=== PATIENT | female | born 1985 | race Caucasian/White ===

== ENCOUNTER → 2019-04-27 | Outpatient (CLI) | payer OTHER, SELFPAY ==
[2019-04-27 16:00] LABS: Internal QC Validated? YES +Cl - CLEAR BKGD
[2019-04-27 16:43] LABS: Pregnancy, Serum, hCG Quali. POSITIVE Negative (0-9 Nonpreg); hCG Titer Quant., Serum 695 mIU/mL (1-3)
== END | disposition home or self-care (01) ==
LOC: WOBLAB 14:31
PROVIDERS: Visit Provider Obstetrics & Gynecology
DX: O20.0 Threatened abortion (principal)
CPT/HCPCS: 36415; 84702; 84703

== ENCOUNTER → 2019-04-29 | Outpatient (CLI) | payer OTHER, SELFPAY ==
[2019-04-29 09:41] LABS: hCG Titer Quant., Serum 208 mIU/mL (1-3)
== END | disposition home or self-care (01) ==
LOC: WOBLAB 08:56
PROVIDERS: Visit Provider Obstetrics & Gynecology
DX: O20.0 Threatened abortion (principal)
CPT/HCPCS: 36415; 84702

== ENCOUNTER → 2020-05-25 | Outpatient (CLI) | payer OTHER, SELFPAY ==
--- NOTE | 2020-05-25 11:30 | MRI_ITS ---
STUDY: MRI BRAIN WITH AND WITHOUT CONTRAST (ATTENTION PITUITARY GLAND) REASON FOR EXAM: Female, 35 years old. hyperprolactemia, abnormal labs, fatigue TECHNIQUE: Standardized multiplanar fat and water weighted pulse sequences were obtained. IV Dotarem 15ml was administered for the contrast portion of the examination. COMPARISON: None. FINDINGS: Normal size of the pituitary gland for the patient?s age and gender. Normal enhancement of the pituitary gland, without a demonstrated intrapituitary lesion. Normal infundibular stalk and suprasellar cistern. Normal optic chiasm and hypothalamus. Normal size of the ventricles and extra-axial spaces for the patient''s age. Normal white matter tracts of the supratentorial brain. There is no evidence for recent intracranial ischemia or other cause of cytotoxic edema on diffusion weighted imaging (DWI). Normal bilateral basal ganglia. Normal thalami. Normal flow voids within the major intracranial circulation suggesting patency by spin echo criteria. There is a 5 mm markedly hypointense area within the left side of the sella turcica felt to represent a flow void from a saccular aneurysm from the medial aspect of the cavernous left internal carotid artery. Correlation with MRA, CTA, and/or conventional angiography is recommended. Normal venous enhancement. There is no enhancing intra-axial or extra-axial abnormality. There is no extra-axial fluid accumulation. Normal tectal plate and pineal gland. Normal midbrain, chiquita and medulla. Normal cerebellum. Normal basal cisterns. Normal bilateral temporal bones. Normal bilateral internal auditory canals. No demonstrated orbital abnormality, within the constraints of a routine brain study. Normal visualized paranasal sinuses. Normal calvarium and skull base. Normal visualized upper cervical spine. Normal visualized soft tissue structures. MRI/Brain W/WO Contrast IMPRESSION: Normal unenhanced and enhanced MRI of the pituitary gland. 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 Correlation with MRA, CTA, and or conventional angiography is recommended. Electronically Signed: Angel Lara MD at 13:02 EDT Tel , Service support ,
== END | disposition home or self-care (01) ==
PROVIDERS: PCP Internal Medicine; Referring Provider Obstetrics & Gynecology; Visit Provider Obstetrics & Gynecology
DX: E22.1 Hyperprolactinemia (principal)
CPT/HCPCS: 70553; A9575

== ENCOUNTER → 2021-02-08 10:39 | Outpatient (CLI) | payer OTHER, SELFPAY ==
[2017-04-16 17:33] VITALS: BMI 35.3
[2021-02-08 13:27] LABS: Absolute Lymphocyte Count 2.58 X10^3/uL (0.83-4.51); Absolute Neutrophil Count 4.8 X10^3/uL (2.0-7.7); Basophil# 0.06 X10^3/uL; Basophil% 0.7 % (0-1); Eosinophil# 0.08 X10^3/uL; Hematocrit 41.2 % (37-47); Hemoglobin 13.1 g/dL (12.0-15.0); Lymphocyte # 2.58 X10^3/ul (4.0); Lymphocyte % 31.9 % (19-41); Mean Corp Hgb Conc 31.8 g/dL (32-36); Mean Corpuscular Hgb 28.6 pg (27.0-32.0); Mean Platelet Vol. 12.4 fl (6.2-12.0); Monocyte# 0.58 X10^3/uL; Monocyte% 7.2 % (0-10); NRBC Flagged by Analyzer 0 % (0-5); Neutrophil # 4.76 X10^3/uL (2.7-7.7); Neutrophil % 58.7 % (47-70); Platelet Count 252 K/mm3 (150-450); RBC Distribution Width CV 13.2 % (11.6-14.6); RBC Distribution Width SD 43.5 fl (35.1-43.9); Red Blood Count 4.58 M/mm3 (4.2-5.4); White Blood Count 8.1 K/mm3 (4.4-11.0)
[2021-02-08 13:48] LABS: ALB/GLOB Ratio 1.1 RATIO (0.9-2.4); AST(SGOT) 25 U/L (15-37); Alanine Aminotransfer ALT/SGPT 51 U/L (13-56); Alkaline Phosphatase 64 U/L (45-117); Anion Gap 5 (5-15); BUN 8 mg/dL (7-18); BUN/Creat Ratio 9.5 RATIO (10-20); Calcium,Total 8.9 mg/dL (8.5-10.1); Chloride 105 mmol/L (98-107); Creatinine, Serum 0.84 mg/dL (0.55-1.02); EST Glomerular Filtration Rate 81 mL/min (>60); Est Glom Filt Rate - Afr Amer 98 mL/min (>60); Globulin 3.5 g/dL (2.2-4.2); Glucose 99 mg/dL (74-106); LDH 172 U/L (84-246); Potassium 3.8 mmol/L (3.5-5.1); Protein, Total 7.5 g/dL (6.4-8.2); Sodium Level 138 mmol/L (136-145); Thyroid Stim Hormone (TSH) 4.36 uIU/mL (0.358-3.74)
[2021-02-08 13:56] LABS: Protein, Urine (Random) < 6.0 mg/dL (<11.9)
[2021-02-09 09:36] LABS: HIV - WCH Non-Reactive (Nonreactive); Hepatitis B Surface Antigen Non-Reactive (Nonreactive); Hepatitis C Antibody Non-Reactive (Nonreactive); Rubella IgG Reactive (Nonreactive); Syphilis Antibodies Non-reactive
[2021-02-09 20:07] LABS: Chlamydia By Nucleic Acid AMP Negative (Negative)
[2021-02-09 20:37] LABS: Gonococcus By Nucleic Acid AMP Negative (Negative)
== END ==
PROVIDERS: PCP Internal Medicine; Visit Provider Obstetrics & Gynecology
DX: Z32.01 Encounter for pregnancy test, result positive (principal)
CPT/HCPCS: 36415; 80053; 82570; 83615; 84156; 84439; 84443; 85025; 86703; 86762; 86780; 86803; 87086; 87088; 87340; 87491; 87591

== ENCOUNTER → 2021-03-15 10:55 | Outpatient (CLI) | payer OTHER, SELFPAY ==
[2017-04-16 17:33] VITALS: BMI 35.3
[2021-03-15 12:42] LABS: T4 Free Direct 1.04 ng/dL (0.76-1.46); Thyroid Stim Hormone (TSH) 2.84 uIU/mL (0.358-3.74)
== END ==
PROVIDERS: PCP Internal Medicine; Visit Provider Obstetrics & Gynecology
DX: Z34.81 Encounter for supervision of other normal pregnancy, first trimester (principal)
CPT/HCPCS: 36415; 84439; 84443

== ENCOUNTER → 2021-07-17 08:52 | Outpatient (CLI) | payer OTHER, SELFPAY ==
[2021-07-17 11:15] LABS: Hematocrit 34.6 % (37-47); Hemoglobin 10.9 g/dL (12.0-15.0); Mean Corp Hgb Conc 31.5 g/dL (32-36); Mean Corpuscular Hgb 28.1 pg (27.0-32.0); Mean Corpuscular Volume 89.2 fL (81-99); Mean Platelet Vol. 12.7 fl (6.2-12.0); Platelet Count 194 K/mm3 (150-450); RBC Distribution Width SD 42.2 fl (35.1-43.9); Red Blood Count 3.88 M/mm3 (4.2-5.4); White Blood Count 9.3 K/mm3 (4.4-11.0)
[2021-07-17 11:34] LABS: Glucose Challenge Gest 1H 50g 135 mg/dL (70-140); T4 Free Direct 0.83 ng/dL (0.76-1.46); Thyroid Stim Hormone (TSH) 1.44 uIU/mL (0.358-3.74)
== END ==
PROVIDERS: PCP Internal Medicine; Visit Provider Obstetrics & Gynecology
DX: Z34.83 Encounter for supervision of other normal pregnancy, third trimester (principal)
CPT/HCPCS: 36415; 82950; 84439; 84443; 85027

== ENCOUNTER → 2021-09-11 | Outpatient (CLI) | payer OTHER, SELFPAY | END | disposition home or self-care (01) | LOC: LABSPEC 14:32 | PROVIDERS: PCP Internal Medicine; Visit Provider Obstetrics & Gynecology | DX: Z36.85 Encounter for antenatal screening for Streptococcus B (principal) | CPT/HCPCS: 87081 ==

== ENCOUNTER → 2021-09-25 | Outpatient (CLI) | payer OTHER, SELFPAY | END | disposition home or self-care (01) | LOC: LABSPEC 09:54 | PROVIDERS: PCP Internal Medicine; Visit Provider Obstetrics & Gynecology | DX: Z03.818 Encounter for observation for suspected exposure to other biological agents ruled out (principal) | CPT/HCPCS: 87635; U0005; U0003 ==

== ENCOUNTER 2021-10-03 05:05 | Inpatient (IN) | payer OTHER, SELFPAY ==
[2021-10-03] VITALS (18 sets, daily range): BP systolic 95–127; BP diastolic 50–80; PULSE 60–85; RESP 11–18; TEMP 35.5–36.4; O2SAT 96–100; BMI 37.9
[2021-10-03] MEDS: Lactated Ringers 1,000 ML 999 ML IV (05:30)
[2021-10-03] MEDS: Acetaminophen 500 MG Tablet 1000 MG PO ×3 (05:45→18:46)
[2021-10-03 05:52] LABS: Absolute Lymphocyte Count 2.37 X10^3/uL (0.83-4.51); Absolute Neutrophil Count 6.9 X10^3/uL (2.0-7.7); Basophil# 0.04 X10^3/uL; Basophil% 0.4 % (0-1); Hematocrit 34.7 % (37-47); Hemoglobin 11.1 g/dL (12.0-15.0); Lymphocyte # 2.37 X10^3/ul (0.83-4.51); Lymphocyte % 23.4 % (19-41); Mean Corpuscular Hgb 28.3 pg (27.0-32.0); Mean Corpuscular Volume 88.5 fL (81-99); Mean Platelet Vol. 13.2 fl (6.2-12.0); Monocyte# 0.56 X10^3/uL; Monocyte% 5.5 % (0-10); NRBC Flagged by Analyzer 0 % (0-5); Neutrophil % 68.3 % (47-70); Platelet Count 163 K/mm3 (150-450); RBC Distribution Width CV 14.7 % (11.6-14.6); RBC Distribution Width SD 46.9 fl (35.1-43.9); Red Blood Count 3.92 M/mm3 (4.2-5.4); White Blood Count 10.1 K/mm3 (4.4-11.0)
[2021-10-03] MEDS: Lactated Ringers 1,000 ML 150 ML IV (06:30)
[2021-10-03] MEDS: Sodium Citrate/Citric Acid 30 ML UDC PO (07:04)
--- NOTE | 2021-10-03 07:21 | PCM.HP.OB ---
HPI - General General Date of Admission: 10/03/21 HPI Narrative JAYLYN CONTRERAS, is a 36 F who presents at 39w3d for scheduled repeat section with bilateral salpingectomy. Maternal Data Information MADDY Calculator Estimated Delivery Date Method Current WG Current Estimate 10/08/21 Manual 39w 2d PFSH PFS Medical History (Updated 10/03/21 @ 07:[address] Emma Pitts MD) Autoimmune disease MRSA infection PCOS (polycystic ovarian syndrome) Pre-eclampsia Thyroid disorder Home Medications aspirin 81 mg PO DAILY 10/03/21 [History Last Taken 10/02/21] levothyroxine [Synthroid] 100 mcg PO DAILY 10/03/21 [History Last Taken 10/02/21] Allergy/AdvReac Type Severity Reaction Status Date / Time sulfamethoxazole Allergy Hives Verified 04/16/17 18:31 [From Bactrim] trimethoprim [From Bactrim] Allergy Hives Verified 04/16/17 18:31 Family History (Updated 10/03/21 @ 07:[address] Emma Pitts MD) Mother Thyroid disorder Father Cancer Surgical History Previous section Social History Smoking Status: Never smoker History Elective abortions Hx Para 2 Spontaneous abortions Hx # Term Pregnancies Ectopic pregnancies Hx # Pregnancies Multiple births # of living children NST FHR Rate Baby A Baseline: 140 bpm Vital Signs Vital Signs Vital Signs: Weight Weight: 91 kg Body Mass Index (BMI) 37.9 Physical Exam Const alert, oriented x3 and no apparent distress HEENT normocephalic Resp normal respiratory effort, normal air movement and clear to auscultation bilaterally Cardio regular rate and regular rhythm GI normal to inspection, nondistended, normoactive bowel sounds, soft to palpation, non-tender and non-distended Inspection: gravid Labs Labs Labs: Blood Type O POSITIVE Antibody Screen NEGATIVE Hct 34.7 % (37-47) L Hgb 11.1 g/dL (12.0-15.0) L Syphilis Total Ab Non-reactive Rubella IgG Antibody Reactive (Nonreactive) Hep Bs Antigen Non-Reactive (Nonreactive) Neisseria gonorrhoeae DNA (GRADY) Negative (Negative) HIV 1&2 Antibody Non-Reactive (Nonreactive) Glucose 1 Hr 50 gm 135 mg/dL (70-140) Group B Strep DNA Negative (Negative) Rhogam given: No ACOG ANTEPARTUM RECORD - HISTORY AND PHYSICAL (10/03/2021) Name: JAYLYN CONTRERAS History of this : This is a 36 year old [id number] presents at 39 wks + 2 days gestation. OB Physician: Emma Pitts MD 's Physician: [facility] ...................................................................... : 1985 Age: 36 Address: [address] [place] [address] Phone: (h) [phone] (O) 165 Insurance Carrier: [facility] [id number] Emergency Contact: EMANUEL CONTRERAS [phone] ...................................................................... Final MADDY: 10/08/21 By Ultrasound: 6 weeks 3 days PARITY: (G-Total Pregnancies P-Fullterm,Premature,Induced AB,Spont AB, Ectopics, Multiple,Living) MADDY CONFIRMATION: By LMP: 11/28/20 By First Ultrasound Exam: 10/08/21 Final MADDY: 10/08/21 OB PROBLEM LIST: Req AFP. 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 Drinks almond milk. Balanced diet. One cup coffee qd. One gal water daily. Lifestyle - moderate stress lifestyle and Exercise - active work and likes to walk. 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 Illicit Drug Use - None Sexual Activity - Residence - lives with and and kids Place of - [place] Hours Worked - 40 hours per week Spouse-Sig Other Name - Emanuel Spouse-Sig Other Occupation - Clergy/Investments Spouse-Sig Other Phone No - [phone] Children Name(s) - Kasie(11), lM (17) PRIOR DELIVERY HISTORY DEL DATE GEST LAB WT LB WT OZ TYPE ANES LABOR TX May 05 8 0 0 0 Sab None No March 27 40 5 7 11 C-Sec Spinal No April 02 39 0 8 5 C-Sec Spinal No ANTEPARTUM FLOW CHART VISIT GE RTC FU F F IA U U DATE WK MD WKS HT PN HR M SS BP ED WT IA GL D EF ST __ ____ ___ __ __ ___ __ __ __ ___ __ __ __ ___ __ 09 Sep SHM 1 38 V + + 114/84 sl 198 ne tr 02 Sep SHM 1 37 V + + 116/70 sl 199 tr 2+ 26 Aug 36 JM 1 36 V + + 118/76 1+ 196 ne ne 19 Aug 35 + + / sl 200 ne 1+ 12 Aug 34 SHM 2 34 V + + 110/80 1+ 197 ne ne 05 Oct 33 + + 104/76 sl 195 - - Jul SHM 2 32 V + + 102/60 1+ 192 - - 14 Aug 16 SHM 2 30 ? + + 120/68 sl 192 tr - Jul 14 SHM 3 29 + + 126/82 1+ 190 - 2+ 06 Jul 10 SHM 4 + 122/78 188 03 Jul 10 SHM 4 25 ? + + 126/72 tr 189 tr ne May 05 SHM 4 21 ? + + 90/62 0 187 tr - March 30 JM 5 14 - on O 126/86 0 185 ne ne Feb 24 JM 4 10 - + 110/76 0 186 ne ne Feb 25 JM 4 6 - + 120/82 0 191 ne ne ANTEPARTUM NOTE(S): Sep 25 2021: Pre-op today Sep 18 2021: NST reactive Sep 11 2021: Sep 04 2021: Aug 28 2021: Aug 21 2021: Aug 14 2021: Jul 31 2021: doing well Jul 17 2021: Glucola today, doing well Jun 22 2021: Afebrile-T 98.2 (O), urine dip is negative Jun 19 2021: glucola given for next apt May 16 2021: comp u/s today Apr 12 2021: Mar 15 2021: Feb 15 2021: COMPREHENSIVE ANTEPARTUM NOTE(S): Sep 25 2021: Jaylyn is here for a NST, pre op visit w Covid test. Baby active. NST reactive per Dr MAO. Ankles puffy as usual. Pre op tubal and CS forms read. Op permit signed. Ensure drink given w instructions. Body wash paper given w explanation and she will obtain at [facility]. Excited about having baby. Covid19 swab done w ease and to lab. Sandoval MENDOZA. Sep 25 2021: Reviewed preop consents - r/b/i/a repeat C/S, bilateral salpingectomy for sterilization reviewed. Preop packet given. Preeclampsia si/sx reviewed. Sep 18 2021: H taken to OB tkg Sep 18 2021: Jaylyn is here for a NST and visit. Feeling well. Baby active. Had 2 brief episodes after lunch today of Fitbit alerting her to a rapid pulse noting 120-140. She did a pulse check and noted pulse was rapid. She was sitting in a meeting at the time and pulse normalized. Urine today was 2+ glucose. Lunch was a sub sandwich and can of Pepsi. No symptoms noted w the tachycardia. With NST pul Sep 11 2021: Jaylyn is here with her , Emanuel for NST, US and appt. Feeling well. Continues w corey ankle, lower leg puffiness- almost 1+. Baby active. NST read as reactive by Dr MEAD. JARET. Sep 11 2021: 36 weeks, GBS collected today. Growth ultrasound today AGA, vertex. NST reactive. AMA, NST scheduled next week. JM Sep 04 2021: Jaylyn is here for a NST. Feeling well. Had one day of a headache over the weekend w BP ok, no blurred vision. Tylenol and magnesium w rest relieved it. Urine glucose 1+. Ate out this am- OJ, waffle w syrup. NST reactive by Dr MAO. JARET. Aug 28 2021: Jaylyn and ava are here for NST and visit. Feeling well. Baby active. Some edema in hands and feet/ankles. Fingers feel numb and tingly at times. Has support gloves and brace for HS without much relief. JARET. Aug 28 2021: CEPHALIC by [facility]. Had ring removed. Continues with carpal tunnel symptoms, using brace. No ob complaints. Denies sx preeclampsia. Swelling unchanged from prior. Preeclampsia and PTL precautions. Aug 21 2021: Jaylyn is here for her NST at 33 w 1 d. She states that she feels good, and has been feeling good FM. Jaylyn denies spotting/LoF/cramping. Slight edema noted below knees and in hands, she has removed her wedding ring. Baby very active during NST, with FHR accelerations noted; also noted a variable deceleration down to 70's, total deceleration time was 30 seconds. No ctx's noted. NST read per . Aug 14 2021: Jaylyn is here w for US, NST and visit. Feeling well. Having carpal tunnel symptoms. Sleeps w a glove which gives some relief. She is unable to remove wedding rings. Ankles puffy. Baby active. NST is initial one for this and procedure explained. NST reactive per Dr MAO. DRC Aug 14 2021: Swelling in hands. Reviewed strategies to remove ring. NST reactive, Cat I. US today EFW 1680g (12.5th%), SINCERE 14cm. CEPHALIC. Discussed ERAS protocol for section, anticipate hospitalization, recovery, as well as tubal sterilization - plan for bilateral salpingectomy. Jul 31 2021: Encouraged Influenza and Tdap vaccine. Declines Influenza but will likely have Tdap. LMT Jul 17 2021: PTL, ROM, FM precautions. Has some swelling in feet and ankles. It improves with water therapy sessions. Hands are also swollen with some paresthesia and painin wrist, discussed wrist brace for carpal tunnel symptoms. Si/sx preeclampsia reviewed. Discussed 3rd trimester monitoring for AMA, indications, benefits reviewed given hx hypothyroidism, prior hx HELPP syndome. Plan monthly growth and weekl Jun 22 2021: Jaylyn is here for evaluation of pain on lower left side that is worse when she changes position. Pain is low around pubis and radates to buttock. LMT Jun 22 2021: as above. Reports sudden onsent LLQ pain with radiation into the groin as well as the left hip and back. She has had several episodes. This most recent episode started on the 06/21/21 around 5pm. Today the pain is more mild than when it started. She reports it initially feels like there is a gas bubble moving, but she doesn't seem to pass gas along with this. After that subsides, she gets a sensatio Jun 19 2021: Jaylyn is here for PNV. States that her headaches are less severe and having them not as often. Did take her trip as planned and had no issues. However, has had 3 episodes of a painful pressure in left deep pelvis. Not sure of cause. Thinks it may be bowel related. Just spontaneously comes and goes. Having good FM. No edema present today. Urine tr/neg. LSS Jun 19 2021: Painfulness was random, localized to L. upper and lower abdomen. Not improved with position changes, emptying of bowel or bladder. Denies dysuria, frequency, inability to void, constipation or diarrhea. Sx resolve spontaneously, but may have lasted for several hours. She feels it may be bowel related with significant pressure and feeling of inflammation. Encouraged pt to call to be seen if has fla May 16 2021: Jaylyn is here for comp u/s. She is feeling well except for increased headaches. She relates she has a headache most days. Does get relief with Tylenol. She could try adding daily Magnesium supplement. Asking about spray wynne prior to vacation? Advised would avoid this unless feels really strong about having a spray wynne but likely a lot of chemicals in this. Would recommend sunscreen, hat, umbre May 16 2021: US today, EFW 763rd%, anatomy wnl, placenta posterior. MALE. Circ planned, first son however had mild hypospadias with foreskin abnormality requiring delayed circumcision with Urology. c/o tension type and migraine type headaches. Recommend Mg 400mg daily. Continues ASA daily for preeclampsia preventions. Synthroid refilled, repeat TFTs at 28wga. 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 States that issue she was having with bladder emptiying has resolved. No further issues. Bowel working well now also. Some nausea still but able eat and drink fluids without difficulty. No edema noted today. Voices no complaints today. Urine neg/neg LSS Apr 12 2021: 14wk, no complaints. Mar 15 2021: Jaylyn is here for PNV. States she is feeling well. Nausea has started to subside. Admits need to increase fluid intake. Having some problems emptying her bladder. No edema note at this time. No other concerns. Urine neg/neg. Mar 15 2021: 10wk, increased synthroid dose 4 weeks ago. For repeat lab work today. Feb 27 2021: [employer] [place]- Jaylyn is a 36 yo G 4 P 2 with MADDY 11-22-21 planning a RCS at [facility] w [facility], using [facility] for post disch ped care and to breastfeed. After her last baby she was readmitted at one w for severe PIH. 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 Her Emanuel is self employed with multiple investments. They are pleas REVIEW OF SYSTEMS: GENERAL - Denies fever, or chills SKIN - Denies rash, new skin lesions, or change in moles EYES - Denies blurred vision, or change in visual acuity EARS - Denies ear pain, or difficulty hearing NOSE - Denies nasal congestion, discharge, or bleeding MOUTH - Denies sore throat, or difficulty swallowing NECK - Denies pain or swelling RESPIRATORY - Denies shortness of breath, cough, wheezing CARDIOVASCULAR - Denies palpitations, chest pain, orthopnea, PND, peripheral edema, syncope or claudication GASTROINTESTINAL - Denies nausea, vomiting, diarrhea, constipation, Denies abdominal pain, melena and or bright red blood GENITOURINARY - Denies dysuria, frequency of urination, urgency, or hesitancy MUSCULOSKELETAL - Denies joint or muscle pain, or back pain NEUROLOGICAL - Denies localized numbness, weakness, or tingling PSYCHIATRIC - Denies depression, anxiety, substance abuse or suicide attempts ENDOCRINE - Denies heat or cold intolerance, weight loss or gain, increasing thirst HEMATO-IMMUNOLOGIC - Denies easy bruising, bleeding, oral ulcerations or recurrent infections GENETICS SCREENING: Age 35+ years: Yes Thalassemia: No Neural Tube Defect: No Down Syndrome: No LASHELL-SACHS: No Sickle Cell Disease: No Hemophilia: No Musc. Dystrophy: No Cystic Fibrosis: No-declines screening Marcell Chorea: No Mental Retardation: No Fragile X: No Other genetic: No Other defects: No SABs/still births: Yes x1 Drugs since LMP: Yes INFECTION HISTORY: High risk AIDS: No High risk Hepatitis: Yes Exposed to TB: Yes Exposed to Herpes: No Rash/viral illness since LMP: No History of STD: No MENSTRUAL HISTORY: *Menses Amount/Duration: 5-6 DAYSMenarche (Age Onset): 12* PAST SUMMARY: PARITY: 1. Total Pregnancies............ 4 2. Full Term Pregnancies........ 2 3. Premature.................... 0 4. Abortions - Induced.......... 0 5. Abortions - Spontaneous...... 1 6. Ectopics..................... 0 7. Multiple Births.............. 0 8. Living Children.............. 2 PAST #1: Date of :.................. 03/26/11 Gestation Weeks:................ 40 Length of labor(hours):......... 5 Sex:............................ M Weight-lbs:............... 7 Weight-oz:................ 11 Type of Delivery:............... C-Sect Type of Anesthesia:............. Spinal Place of Delivery:.............. MCM Treatment of Labor?:.... No Comment: FAILURE TO PROGRESS PAST #2: Date of :.................. 04/07/17 Gestation Weeks:................ 39 Length of labor(hours):......... 0 Sex:............................ F Weight-lbs:............... 8 Weight-oz:................ 5 Type of Delivery:............... C-Sect Type of Anesthesia:............. Spinal Place of Delivery:.............. Aneudy Treatment of Labor?:.... No Comment: LULU SRIVASTAVA, ANGIE, PAST #3: Date of :.................. 04/17/19 Gestation Weeks:................ 8 Length of labor(hours):......... 0 Sex:............................ UNKNOWN Weight-lbs:............... 0 Weight-oz:................ 0 Type of Delivery:............... Sab Type of Anesthesia:............. None Place of Delivery:.............. HOME Treatment of Labor?:.... No Comment: NO PHYSICAL EXAMINATION General Appearence: 36 yo female in no acute distress Vital Signs: AF, VSS Heart: RRR without rubs or gallops Lungs: CTA x 2 Breasts: deferred Abdomen: gravid Pelvis: Cervix: Presentation: cephalic Station: Fetus: Size: AGA Movement: present Heart: present LAB TEST(S) ORDERED SINCE:01/11/21 10/03/2021 TYPE AND SCREEN 10/03/2021 CBC W/DIFF, AUTOMATED 09/25/2021 COVID 19, GRADY [facility](RT COLLECT) 09/14/2021 RULE OUT BETA STREP (GRP. B) 07/17/2021 THYROID STIM HORMONE (TSH) 07/17/2021 T4 FREE DIRECT 07/17/2021 GLUCOSE CHALLENGE GEST 1H 50G 07/17/2021 CBC-COMPLETE BLOOD CNT NO DIFF 03/15/2021 THYROID STIM HORMONE (TSH) 03/15/2021 T4 FREE DIRECT 02/10/2021 CULTURE, URINE 02/09/2021 RUBELLA IGG 02/09/2021 L509.8000 02/09/2021 HIV - [facility] 02/09/2021 HEPATITIS C ANTIBODY 02/09/2021 HEPATITIS B SURFACE ANTIGEN 02/09/2021 CHLAMYDIA/GC GRADY APTIMA 02/08/2021 THYROID STIM HORMONE (TSH) 02/08/2021 T4 FREE DIRECT 02/08/2021 PROTEIN+CREATININE RATIO,URINE 02/08/2021 T AND S-NO CHARGE W/PNP 02/08/2021 LDH 02/08/2021 COMPREHENSIVE METABOLIC PROFIL 02/08/2021 CBC W/DIFF, AUTOMATED == ==== Order Observation Description Value Ref_Range A* Site == ==== S [facility]~[address] [place], [address]~ TYPE AND SCRE AB SCREEN GEL NEGATIVE ML CBC W/DIFF, AUT NOTE ROBLERO CBC W/DIFF, AUT WBC 10.1 K/mm3 4.4-11.0 ML CBC W/DIFF, AUT RBC 3.92 M/mm3 4.2-5.4 L ML CBC W/DIFF, AUT HGB 11.1 g/dL 12.0-15.0 L ML CBC W/DIFF, AUT HCT 34.7 37-47 L ML CBC W/DIFF, AUT MCV 88.5 fL 81-99 ML CBC W/DIFF, AUT MCH 28.3 pg 27.0-32.0 ML CBC W/DIFF, AUT MCHC 32.0 g/dL 32-36 ML CBC W/DIFF, AUT RDW CV 14.7 11.6-14.6 H ML CBC W/DIFF, AUT RDW SD 46.9 fl 35.1-43.9 H ML CBC W/DIFF, AUT PLT 163 K/mm3 150-450 ML CBC W/DIFF, AUT MPV 13.2 fl 6.2-12.0 H ML CBC W/DIFF, AUT NEUT% 68.3 47-70 ML CBC W/DIFF, AUT LY% 23.4 19-41 ML CBC W/DIFF, AUT MONO% 5.5 0-10 ML CBC W/DIFF, AUT EO% 1.0 0-5 ML CBC W/DIFF, AUT BASO% 0.4 0-1 ML CBC W/DIFF, AUT IG% 1.400 0.0-0.9 H ML IG% - Immature Granulocytes (promyelocytes, myelocytes and metamyelocytes) > 1% indicates that a LEFT SHIFT is Present. CBC W/DIFF, AUT ABSOLUTE NEUT 6.9 X10 3/uL 2.0-7.7 ML CBC W/DIFF, AUT ABSOLUTE LYMPH 2.37 X10 3/uL 0.83-4.51 ML CBC W/DIFF, AUT NUCLEATED RBC 0 0-5 ML COVID 19, GRADY NOTE ROBLERO COVID 19, GRADY COVID-19,GRADY Not Detected Not Detect ML Normal Reference Range: Not Detected Method:(RT-PCR) real-time reverse transcriptase PCR [employer] ActiViews Instrument *The Food and Drug Administration (FDA) has issued an Emergency Use Authorization (EAU) for the ActiViews SARS-CoV-2 Assay for the rapid detection of the virus that causes COVID-19. This test has been validated, but the FDAs independent review of this validation is pending. *Negative results do not preclude infection and should not be used as the sole basis for treatment or patient management. Optimum specimen types and timing for peak viral levels during infections caused by SARS-CoV-2 have not been determined. Collection of multiple specimens from the same patient may be necessary to detect the virus. The possibility of a false negative result should be considered if the patient has clinical presentation or has had recent exposure. RULE OUT BETA S NOTE ROBLERO T4 FREE DIRECT NOTE ROBLERO T4 FREE DIRECT T4 FREE DIRECT 0.83 ng/dL 0.76-1.46 ML THYROID STIM HO NOTE ROBLERO THYROID STIM HO TSH 1.44 uIU/mL 0.358-3.74 ML GLUCOSE CHALLEN NOTE ROBLERO GLUCOSE CHALLEN GLU GEST 50G 1H 135 mg/dL 70-140 ML CBC-COMPLETE BL NOTE ROBLERO CBC-COMPLETE BL WBC 9.3 K/mm3 4.4-11.0 ML CBC-COMPLETE BL RBC 3.88 M/mm3 4.2-5.4 L ML CBC-COMPLETE BL HGB 10.9 g/dL 12.0-15.0 L ML CBC-COMPLETE BL HCT 34.6 37-47 L ML CBC-COMPLETE BL MCV 89.2 fL 81-99 ML CBC-COMPLETE BL MCH 28.1 pg 27.0-32.0 ML CBC-COMPLETE BL MCHC 31.5 g/dL 32-36 L ML CBC-COMPLETE BL RDW CV 13.0 11.6-14.6 ML CBC-COMPLETE BL RDW SD 42.2 fl 35.1-43.9 ML CBC-COMPLETE BL PLT 194 K/mm3 150-450 ML CBC-COMPLETE BL MPV 12.7 fl 6.2-12.0 H ML T4 FREE DIRECT NOTE ROBLERO T4 FREE DIRECT T4 FREE DIRECT 1.04 ng/dL 0.76-1.46 ML THYROID STIM HO NOTE ROBLERO THYROID STIM HO TSH 2.84 uIU/mL 0.358-3.74 ML CULTURE, URINE NOTE ROBLERO CHLAMYDIA/GC NA NOTE ROBLERO CHLAMYDIA/GC NA CHLAMY,NUC ACID Negative Negative LCI CHLAMYDIA/GC NA GC BY NUC ACID Negative Negative LCI Performed at: = - [facility] [place] [id number] [employer] Straightened: Laurie Taylor MD, Phone: [phone] HEPATITIS C ANT NOTE ROBLERO HEPATITIS C ANT HEPATITIS C AB Non-Reactive Nonreactive ML Non Reactive: < 0.8 Equivocal: >/= 0.8 to < 1.0 Reactive: >/= 1.0 The CDC recommends that a reactive/equivocal HCV antibody result be followed up by the HCV Nucleic Acid Amplification test (201052) HEPATITIS B MARTHA NOTE ROBLERO HEPATITIS B MARTHA HEP B SURF AG Non-Reactive Nonreactive ML HIV - [facility] NOTE ROBLERO HIV - [facility] HIV Non-Reactive Nonreactive ML L509.8000 NOTE ROBLERO L509.8000 SYPHILIS ABS Non-reactive ML RUBELLA IGG NOTE ROBLERO RUBELLA IGG RUBELLA IGG Reactive Nonreactive ML Antibody Results Interpretation of Immune Status Non Reactive Presumed Non-Immune Equivocal Equivocal Reactive Presumed Immune PN N [facility]~[address] [place], [address]~ T AND AB SCREEN GEL NEGATIVE ML PROTEIN+CREATIN NOTE ROBLERO PROTEIN+CREATIN UR CREAT 36.80 mg/dL NO RANGE EST. ML PROTEIN+CREATIN PROTEIN,UR.RAN. < 6.0 mg/dL <11.9 ML PROTEIN+CREATIN PROT:CRE RATIO TNP mg/g CRE 0-200 ML T4 FREE DIRECT NOTE ROBLERO T4 FREE DIRECT T4 FREE DIRECT 1.00 ng/dL 0.76-1.46 ML LDH NOTE ROBLERO LDH LDH 172 U/L 84-246 ML THYROID STIM HO NOTE ROBLERO THYROID STIM HO TSH 4.36 uIU/mL 0.358-3.74 H ML COMPREHENSIVE M NOTE ROBLERO COMPREHENSIVE M GLU 99 mg/dL 74-106 ML Please note revised GLUCOSE reference range effective 12/19/2017. COMPREHENSIVE M BUN 8 mg/dL 7-18 ML COMPREHENSIVE M CREAT,SERUM 0.84 mg/dL 0.55-1.02 ML The validity of the calculated GFR GFRAA in patients over 70 years has not been determined. Clinical correlation is essential. COMPREHENSIVE M EST GFR 81 mL/min >60 ML Non- GFR Calc COMPREHENSIVE M EST GFR - AA 98 mL/min >60 ML GFR Calc COMPREHENSIVE M BUN/CRE 9.5 RATIO 10-20 L ML COMPREHENSIVE M T PROT 7.5 g/dL 6.4-8.2 ML COMPREHENSIVE M ALB 4.0 g/dL 3.2-5.0 ML COMPREHENSIVE M GLOB 3.5 g/dL 2.2-4.2 ML COMPREHENSIVE M A/G 1.1 RATIO 0.9-2.4 ML COMPREHENSIVE M CA,TOTAL 8.9 mg/dL 8.5-10.1 ML COMPREHENSIVE M AST 25 U/L 15-37 ML COMPREHENSIVE M ALK P 64 U/L 45-117 ML COMPREHENSIVE M ALT 51 U/L 13-56 ML COMPREHENSIVE M T BILI 0.70 mg/dL 0.20-1.00 ML For patients on eltrombopag therapy, use of Dimension [place] TBIL is not recommended. COMPREHENSIVE M NA 138 mmol/L 136-145 ML COMPREHENSIVE M POTASSIUM 3.8 mmol/L 3.5-5.1 ML COMPREHENSIVE M CL 105 mmol/L 98-107 ML COMPREHENSIVE M CO2 28.0 mmol/L 21.0-32.0 ML COMPREHENSIVE M GAP 5 5-15 ML CBC W/DIFF, AUT NOTE ROBLERO CBC W/DIFF, AUT WBC 8.1 K/mm3 4.4-11.0 ML CBC W/DIFF, AUT RBC 4.58 M/mm3 4.2-5.4 ML CBC W/DIFF, AUT HGB 13.1 g/dL 12.0-15.0 ML CBC W/DIFF, AUT HCT 41.2 37-47 ML CBC W/DIFF, AUT MCV 90.0 fL 81-99 ML CBC W/DIFF, AUT MCH 28.6 pg 27.0-32.0 ML CBC W/DIFF, AUT MCHC 31.8 g/dL 32-36 L ML CBC W/DIFF, AUT RDW CV 13.2 11.6-14.6 ML CBC W/DIFF, AUT RDW SD 43.5 fl 35.1-43.9 ML CBC W/DIFF, AUT PLT 252 K/mm3 150-450 ML CBC W/DIFF, AUT MPV 12.4 fl 6.2-12.0 H ML CBC W/DIFF, AUT NEUT% 58.7 47-70 ML CBC W/DIFF, AUT LY% 31.9 19-41 ML CBC W/DIFF, AUT MONO% 7.2 0-10 ML CBC W/DIFF, AUT EO% 1.0 0-5 ML CBC W/DIFF, AUT BASO% 0.7 0-1 ML CBC W/DIFF, AUT IG% 0.500 0.0-0.9 ML IG% - Immature Granulocytes (promyelocytes, myelocytes and metamyelocytes) > 1% indicates that a LEFT SHIFT is Present. CBC W/DIFF, AUT ABSOLUTE NEUT 4.8 X10 3/uL 2.0-7.7 ML CBC W/DIFF, AUT ABSOLUTE LYMPH 2.58 X10 3/uL 0.83-4.51 ML CBC W/DIFF, AUT NUCLEATED RBC 0 0-5 ML O POSITIVE No Group B Beta Streptococcus isolated. Urine Culture Below infection level. ORGANISM 1: Mixed Gram Pos AND Gram Neg Org [place] Count 1000-10,000 O POSITIVE Assessment & Plan (1) 39 weeks gestation of : PLAN: Proceed with repeat section, bilateral salpingectomy as planned.
[2021-10-03] MEDS: Cefazolin 2 GM in 0.9% Normal Saline 100 ML IV (07:34)
--- NOTE | 2021-10-03 07:45 | FALS_PTH ---
PATIENT: KATE CONTRERAS LOC: [facility] U#:[id number] AGE/SX: 36/F ROOM: WP007 RE10/03/[address]: Dr. Emma Pitts MD : [id number] BED: 1 DIS: 10/04/2021 SPEC #: [id number] RECD: 10/03/21 13:01 STATUS: MESHA JAIME #: [id number] DANIEL: 10/03/21 07:[address]: Emma Adamson DEPT: SURGICAL PATHOLOGY RECD BY: Marie Kelly ENTERED: 10/03/21 13:01 SP TYPE: FALL TUBES OTHR DR: Dr. Tash Agee MD Tissues: Fallopian tube Procedures: Surgery Specimen Level II Surgery Specimen Level IV HEADER OPERATION: Tubal ligation PRE-OP DIAGNOSIS: Sterilization TISSUE SUBMITTED: Fallopian tubes MICROSCOPIC DIAGNOSIS Right fallopian tube, salpingectomy: Complete segment of fallopian tube. Benign paratubal cyst. Left fallopian tube, salpingectomy: Complete segment of fallopian tube. Benign paratubal cysts. AM:misty 10/04/2021 MICROSCOPIC DESCRIPTION Slides are reviewed. GROSS DESCRIPTION Received in fixative is one container labeled with the patient's name and designated bilateral fallopian tubes, right tube suture. The specimen consists of bilateral fallopian tubes including fimbrial ends. The right tube is identified by a suture. The right fallopian tube measures 8 cm in length and 1 cm in diameter and the left fallopian tube measures 8 cm in length and 0.5 cm in diameter. The right fallopian tube shows a paratubal cyst measuring 0.5 cm in greatest dimension. Sections reveal unremarkable cut surfaces. Business Continuity Consultant sections are submitted in two cassettes as follows: 1 ? right fallopian tube and paratubal cyst, 2 ? left fallopian tube. / SJ:misty 10/03/21 TC:5 CPT: 17818, 83626
--- NOTE | 2021-10-03 08:29 | OP.PCM_ITS ---
Assessment & Plan (1) 39 weeks gestation of : (2) delivery delivered: Maternal Data Information MADDY Calculator Estimated Delivery Date Method Current WG Current Estimate 10/08/21 Manual 39w 2d Details Operative Information Date of Procedure: 10/03/21 Pre-Operative Diagnosis: 1. 39-2/7 weeks gestation 2. Prior section x2 3. Desires permanent sterilization Post-Operative Diagnosis: 1. 39-2/7 weeks gestation 2. Prior section x2 3. Desires permanent sterilization Indications for : Repeat Elective and Desires elective sterilization Indications Narrative: 36-year-old 4 para 2-0-1-3 presents at 39-2/7 weeks gestational age for scheduled repeat section with bilateral salpingectomy. She is counseled regarding procedural risks, benefits, indications and alternatives and desired to proceed. Classification: Scheduled Procedure Type: bilateral salpingectomy public relations manager #1: Hernesto Willingham Type of Anesthesia: Spinal Anesthesiologist: Jace Berry Antibiotic Given: Ancef 2 grams IV x1 Drain: David to straight drain Estimated Blood Loss: 600 ml Fluids Replaced: 1000 ml Findings Description of Procedure: The patient was taken to the operating room and spinal analgesia was administered. She is placed in a dorsal supine position with left lateral tilt. The perineum and abdomen were prepped and draped in sterile fashion. And the spinal was found to be adequate. A Pfannenstiel incision was made using a scalpel and brought down to incise the subcutaneous tissue and rectus fascia at the midline. Subcutaneous tissue was bluntly dissected off the fascia laterally. The fascial incision was dissected laterally and cephalad using curved Hendrix scissors. The superior leaflet of the rectus fascia was grasped using Mary clamps and bluntly dissected and sharply dissected from the underlying rectus muscle. In a similar fashion the inferior rectus fascia was dissected from the underlying muscle. The rectus muscles were bluntly at the midline. The peritoneum was identified and entered bluntly. The bladder blade was placed into the abdomen and the vesicouterine peritoneal fold identified. The fold was incised and a bladder flap created. Bladder blade was then repositioned to the abdomen. A low transverse hysterotomy was made using the [Metzenbaum scissors] to level of the membranes. The hysterotomy was extended bluntly cephalad and caudad. The membranes were then ruptured revealing light meconium stained fluid. The head was elevated and brought to the level of the hysterotomy. Infant mouth and nares were bulb suctioned here. A nuchal cord x1 was reduced. A vigorous [male] delivered. The was passed to awaiting [nursery personnel] for skin to skin. The cord was doubly clamped then cut. The placenta was [expressed] from the uterus and appeared intact on inspection. The uterus was exteriorized and cleared of debr is. The hysterotomy was then repaired using 0 Vicryl running lock suture. A second imbricating layer was also placed for additional hemostasis. The right tubal fimbria was identified and the tube isolated using Amber clamps. Right salpingectomy was performed transecting the tube from the mesosalpinx using the LigaSure device to the level of the uterine cornua. In similar fashion left salpingectomy was also performed after sharp dissection of fimbrial adhesion from the left ovary. The uterus and adnexa were returned to the abdomen. The hysterotomy was again inspected and there is good hemostasis. The bladder blade was removed. The anterior cul-de-sac was cleared of debris. The peritoneum and rectus muscles were reapproximated using 2-0 Vicryl running suture. The subcutaneous tissue was reapproximated using 2-0 Vicryl. The skin was closed using 4-0 Monocryl subcuticularly by the ATHLETIC TEAM PHYSICIAN under my supervision. Mepilex occlusive dressing was placed over the incision. The fund us was firm. The patient was then transferred to the recovery room without complication. Sponge, instrument, and needle counts were correct ?2. I was present for the entire procedure and assisted by the ATHLETIC TEAM PHYSICIAN who was integral to completion of the procedure. weight 2725 g (6 pounds 0.2 ounces) Presentation: Positive for Vertex Amniotic Membrane Rupture Type: Artificial Amniotic Fluid Description: Lightly stained meconium Placental Delivery Description: Expressed Placenta Disposition: [facility] Specimen(s) Sent to Pathology: Bilateral tubes Cord Vessel Description: 3 Vessels Cord Entanglement: Around neck x 1, loose Nuchal Cord Compression: Without compression A Gender: Male (1 minute): 8 (5 minute): 9 Delayed Cord Clamping: Yes Complications Risks of Surgery Discussed w/Patient: Bleeding, Anesthesia Risks, Infection, Permanency, Failure Rate of 1 to 2%, Injury to surrounding structure(s) including bowel and bladder and Availability of other non-permanent control options
[2021-10-03] MEDS: Ketorolac 30 MG/ML Syringe IV ×3 (09:07→20:34)
[2021-10-03] MEDS: Oxytocin 30 units/NS 500 ml 30 UNITS/500 ML IV.SOLN 167 UNITS IV (09:09)
[2021-10-03] MEDS: Levothyroxine 100 MCG Tablet PO (10:45)
[2021-10-03] MEDS: Lactated Ringers 1,000 ML 100 ML IV (13:07)
[2021-10-03] MEDS: 0.9% Saline Lock 10 ML Syringe IV (20:34)
[2021-10-03] MEDS: Heparin Injection (Vial) 5,000 UNIT/ML VIAL 5000 UNIT SC (22:26)
[2021-10-04 00:59] VITALS: BP 118/69; PULSE 69; RESP 16; TEMP 36.6; O2SAT 98
[2021-10-04] MEDS: Acetaminophen 500 MG Tablet 1000 MG PO ×3 (01:01→14:16)
[2021-10-04] MEDS: Ketorolac 30 MG/ML Syringe IV (02:56)
[2021-10-04] MEDS: 0.9% Saline Lock 10 ML Syringe IV (02:57)
[2021-10-04 03:05] VITALS: BP 108/62; PULSE 59; RESP 14; TEMP 36.6; O2SAT 98
[2021-10-04 03:22] LABS: Hematocrit 32.3 % (37-47); Hemoglobin 10.2 g/dL (12.0-15.0); Mean Corp Hgb Conc 31.6 g/dL (32-36); Mean Corpuscular Hgb 28.3 pg (27.0-32.0); Mean Corpuscular Volume 89.7 fL (81-99); Mean Platelet Vol. 12.7 fl (6.2-12.0); Platelet Count 142 K/mm3 (150-450); RBC Distribution Width CV 14.7 % (11.6-14.6); RBC Distribution Width SD 48.3 fl (35.1-43.9); White Blood Count 9.8 K/mm3 (4.4-11.0)
--- NOTE | 2021-10-04 07:16 | PCM.PN.OB ---
Subjective Subjective Postop day 1. Breast-feeding going well. Pain minimal, reports minimal soreness resolved with Toradol. Objective Data Objective Data Vital Signs: Vital Signs Temp Pulse Resp BP Pulse Ox 98 F 59 L 14 108/62 98 10/04/21 03:05 10/04/21 03:05 10/04/21 03:05 10/04/21 03:05 10/04/21 03:05 Oxygen Delivery Method Room Air Weight: 91 kg Body Mass Index (BMI) 37.9 Intake & Output: Intake and Output for Last 24 Hours 10/02/21 10/03/21 10/04/21 23:59 23:59 23:59 Intake Total 3110.83 / 3110.83 800 / 800 Output Total 1740 / 1740 Balance 1370.83 / 1370.83 800 / 800 Lab / Micro Data Result Diagrams: 10/04/21 03:10 Labs: Laboratory Results - last 24 hr 10/04/21 03:10: WBC 9.8, RBC 3.60 L, Hgb 10.2 L, Hct 32.3 L, MCV 89.7, MCH 28.3, MCHC 31.6 L, RDW Std Deviation 48.3 H, RDW Coeff of Bryan 14.7 H, Plt Count 142 L, MPV 12.7 H Physical Exam Const alert, oriented x3 and no apparent distress HEENT normocephalic Head and Scalp: atraumatic Neck full ROM Resp normal respiratory effort Cardio regular rate GI normal to inspection, nondistended, normoactive bowel sounds GI Narrative: Uterus 2 cm below umbilicus. Dressing c/d Back/Spine normal ROM Extremity normal to inspection Extremity Narrative: Minimal pedal edema Neuro no focal motor deficits and no sensory deficits noted Psych mental status grossly normal and affect normal Assessment & Plan (1) delivery delivered: PLAN: Postoperative day 1 status post repeat section and bilateral salpingectomy. Breast-feeding. History of preeclampsia , signs and symptoms reviewed. BP wnl. Follow-up in 2 weeks for incision check and 6-week visit. Home today.
--- NOTE | 2021-10-04 07:18 | PCM.DC ---
Discharge Instructions Diet Discharge Diet: No restrictions Activity Discharge Activity: Return to Normal Activity and May Shower May resume sexual activity in: 4-6 weeks Weight Bearing Status: Weight bearing as tolerated Lifting Restrictions: No greater than 25 pounds Dressing / Incision Call your doctor if your incision/area has: Continuous Slow Oozing, Increased Pain/ Swelling, Increased Redness and Foul Smelling Discharge Call your doctor if you observe: Fever of 101 or Higher, Change in Color, Inability to urinate, Using more than 1 pad per hour, Shortness of breath, Dizziness, Swelling in the ankles, Chest pain and Calf discomfort Remove Dressing in: 1 week Cleanse incision/area with: Soap & Water Follow Up Care Please Follow Up With: Emma Adamson MD When: 2-week post op and 6-week visit Test Results: Test results from this visit will be discussed in further detail at your follow-up appointment, if applicable. Discharge Plan Admission Admit Date/Time: 10/03/21 05:05 Primary Reason for Your Visit: Repeat section Attending Provider: Emma Adamson Primary Care Provider: Tash Agee Discharge Orders/Prescriptions Prescriptions: No Action levothyroxine [Synthroid] 100 mcg Tablet 100 mcg PO DAILY RF: 0 aspirin 81 mg Capsule 81 mg PO DAILY RF: 0 Referrals / Follow Up: Tash Agee MD [Primary Care Provider] - Disposition Disposition (needs filled in before D/C Order can be placed): Home, Self Care
[2021-10-04] MEDS: Levothyroxine 100 MCG Tablet PO (07:36)
[2021-10-04 07:55] VITALS: BP 116/72; PULSE 68; RESP 18; TEMP 36.4; O2SAT 100
[2021-10-04] MEDS: Senna/Docusate Sodium 1 Tablet PO (10:16)
[2021-10-04] MEDS: Ibuprofen 600 MG Tablet PO ×2 (10:16→16:01)
[2021-10-04] MEDS: Heparin Injection (Vial) 5,000 UNIT/ML VIAL 5000 UNIT SC (10:17)
[2021-10-04 14:30] VITALS: BP 108/72; PULSE 100; RESP 20; TEMP 37.2; O2SAT 97
[2021-10-04 15:23] LABS: Pathology Specimen OB SEE PATHOLOGY REPORT
== END 2021-10-04 17:40 | disposition home or self-care (01) | DRG 785 ==
PROVIDERS: Admitting Provider Obstetrics & Gynecology; PCP Internal Medicine; Visit Provider Obstetrics & Gynecology
PROC: 10D00Z1 Extraction of Products of Conception, Low, Open Approach (ICD-10-PCS; CPT 59514; principal; 2021-10-03 07:15)
DX: O69.81X0 Labor and delivery complicated by cord around neck, without compression, not applicable or unspecified (principal); O77.0 Labor and delivery complicated by meconium in amniotic fluid; Z3A.39 39 weeks gestation of pregnancy; Z37.0 Single live birth
CPT/HCPCS: 85025; 85027; 86850; 86900; 86901; 88302; 88305; 99218; J7120; A4216; G0378; J2405

== ENCOUNTER → 2021-10-17 11:28 | Outpatient (CLI) | payer OTHER, SELFPAY ==
[2021-10-17 13:02] LABS: Hematocrit 41.4 % (37-47); Mean Corp Hgb Conc 31.4 g/dL (32-36); Mean Corpuscular Hgb 27.8 pg (27.0-32.0); Mean Corpuscular Volume 88.5 fL (81-99); Mean Platelet Vol. 11.9 fl (6.2-12.0); Platelet Count 343 K/mm3 (150-450); RBC Distribution Width CV 14.1 % (11.6-14.6); RBC Distribution Width SD 45.5 fl (35.1-43.9); Red Blood Count 4.68 M/mm3 (4.2-5.4); White Blood Count 7.3 K/mm3 (4.4-11.0)
[2021-10-17 13:22] LABS: ALB/GLOB Ratio 1.1 RATIO (0.9-2.4); AST(SGOT) 20 U/L (15-37); Alanine Aminotransfer ALT/SGPT 54 U/L (13-56); Albumin, Serum 3.9 g/dL (3.2-5.0); Alkaline Phosphatase 102 U/L (45-117); Anion Gap 8 (5-15); BUN 12 mg/dL (7-18); BUN/Creat Ratio 15.6 RATIO (10-20); Calcium,Total 8.9 mg/dL (8.5-10.1); Chloride 105 mmol/L (98-107); Creatinine, Serum 0.77 mg/dL (0.55-1.02); EST Glomerular Filtration Rate 90 mL/min (>60); Est Glom Filt Rate - Afr Amer 109 mL/min (>60); Globulin 3.6 g/dL (2.2-4.2); Glucose 93 mg/dL (74-106); Protein, Total 7.5 g/dL (6.4-8.2); Sodium Level 139 mmol/L (136-145); Thyroid Stim Hormone (TSH) 1.18 uIU/mL (0.358-3.74); Uric Acid 5.6 mg/dL (2.6-6.0)
[2021-10-17 17:29] LABS: LDH 187 U/L (84-246)
== END ==
PROVIDERS: PCP Internal Medicine; Visit Provider Obstetrics & Gynecology
DX: O16.5 Unspecified maternal hypertension, complicating the puerperium (principal); O99.280 Endocrine, nutritional and metabolic diseases complicating pregnancy, unspecified trimester; Z3A.00 Weeks of gestation of pregnancy not specified
CPT/HCPCS: 36415; 80053; 83615; 84443; 84550; 85027

== ENCOUNTER 2021-10-18 07:45 | Outpatient (CLI) | payer OTHER, SELFPAY ==
[2021-10-18] VITALS (10 sets, daily range): BP systolic 111–126; BP diastolic 68–82; PULSE 62–88; TEMP 36.3; BMI 34.4
--- NOTE | 2021-10-18 08:34 | OB.TRI.NOTE ---
HPI - General HPI Narrative KATE CONTRERAS, is a 36 F who presents to r/o preeclampsia. She is s/p uncomplicated repeat C/S 10/03/21 and was seen in the office on 10/17 with c/o mild headache and noted to have elevated BPs. She had labs showing elevated bilirubin and liver function tests and was advised to come in for further evaluation. She notes her headache has resolved at this time however. Maternal Data Information MADDY Calculator Estimated Delivery Date Method Current WG Current Estimate 10/08/21 Manual 46w 1d PFSH PFS Medical History (Updated 10/19/21 @ 15:[address] Rohit Howe MD) Autoimmune disease Elevated liver enzymes Hypertension Hypothyroid Low serum cortisol level MRSA infection PCOS (polycystic ovarian syndrome) hypertension Pre-eclampsia Thyroid disorder Home Medications aspirin 81 mg PO DAILY 10/03/21 [History Last Taken 10/02/21] levothyroxine [Synthroid] 100 mcg PO DAILY 10/03/21 [History Last Taken 10/02/21] Allergy/AdvReac Type Severity Reaction Status Date / Time sulfamethoxazole Allergy Hives Verified 10/19/21 14:57 [From Bactrim] trimethoprim [From Bactrim] Allergy Hives Verified 10/19/21 14:57 Family History Mother Thyroid disorder Martha's disease Father Cancer LUNG CANCER Hypertension Grandmother Arthritis Diabetes Heart disease Grandfather Diabetes Surgical History Previous section Social History Smoking Status: Never smoker alcohol intake: never substance use type: does not use what type of physical activity do you participate in: walking and running frequency: 1-2 times per week History Elective abortions Hx Para 2 Spontaneous abortions Hx # Term Pregnancies Ectopic pregnancies Hx # Pregnancies Multiple births # of living children Assessment & Plan (1) Elevated liver enzymes: (2) hypertension: PLAN: BPs stable with no worsening Sx resolved and not present during evaluation today Elevated T. bili, bordeline LFT elevation today with no worsening - prior records outside of suggest periodic elevated T bili. Suspect Gilbert syndrome. d/c home, continue home BP monitoring f/u with PCP
[2021-10-18 08:51] LABS: Hematocrit 41.8 % (37-47); Hemoglobin 13.2 g/dL (12.0-15.0); Mean Corp Hgb Conc 31.6 g/dL (32-36); Mean Corpuscular Hgb 27.8 pg (27.0-32.0); Mean Corpuscular Volume 88.2 fL (81-99); Mean Platelet Vol. 11.7 fl (6.2-12.0); Platelet Count 334 K/mm3 (150-450); RBC Distribution Width SD 44.9 fl (35.1-43.9); Red Blood Count 4.74 M/mm3 (4.2-5.4); White Blood Count 7.1 K/mm3 (4.4-11.0)
[2021-10-18 09:20] LABS: ALB/GLOB Ratio 1.1 RATIO (0.9-2.4); AST(SGOT) 18 U/L (15-37); Alanine Aminotransfer ALT/SGPT 48 U/L (13-56); Albumin, Serum 3.8 g/dL (3.2-5.0); Alkaline Phosphatase 107 U/L (45-117); Anion Gap 9 (5-15); BUN 11 mg/dL (7-18); BUN/Creat Ratio 12.2 RATIO (10-20); Calcium,Total 9.3 mg/dL (8.5-10.1); Chloride 109 mmol/L (98-107); EST Glomerular Filtration Rate 75 mL/min (>60); Est Glom Filt Rate - Afr Amer 90 mL/min (>60); Estimated Creatinine Clearance 65.21 ml/min; Globulin 3.6 g/dL (2.2-4.2); Glucose 125 mg/dL (74-106); Potassium 3.8 mmol/L (3.5-5.1); Protein, Total 7.4 g/dL (6.4-8.2); Sodium Level 141 mmol/L (136-145)
[2021-10-18 09:24] LABS: AST(SGOT) 19 U/L (15-37); Alanine Aminotransfer ALT/SGPT 47 U/L (13-56); Creatinine, Serum 0.87 mg/dL (0.55-1.02); EST Glomerular Filtration Rate 78 mL/min (>60); Est Glom Filt Rate - Afr Amer 94 mL/min (>60); Estimated Creatinine Clearance 67.46 ml/min; LDH 192 U/L (84-246); Uric Acid 5.8 mg/dL (2.6-6.0)
[2021-10-18 10:19] LABS: Bilirubin, Direct 0.24 mg/dL (0.00-0.30)
== END 2021-10-18 10:20 | disposition home or self-care (01) ==
LOC: WPOUT 07:52 → WP 07:53
PROVIDERS: Obstetrics & Gynecology; PCP Internal Medicine; Referring Provider Obstetrics & Gynecology; Visit Provider Obstetrics & Gynecology
DX: O90.89 Other complications of the puerperium, not elsewhere classified (principal); O14.95 Unspecified pre-eclampsia, complicating the puerperium; R74.8 Abnormal levels of other serum enzymes
CPT/HCPCS: 36415; 80053; 82247; 82248; 82565; 83615; 84450; 84460; 84550; 85027; 99218; G0378

== ENCOUNTER → 2021-10-30 08:39 | Outpatient (CLI) | payer OTHER, SELFPAY ==
[2021-10-30 12:22] LABS: ALB/GLOB Ratio 1.2 RATIO (0.9-2.4); AST(SGOT) 14 U/L (15-37); Alanine Aminotransfer ALT/SGPT 34 U/L (13-56); Albumin, Serum 4.1 g/dL (3.2-5.0); Alkaline Phosphatase 118 U/L (45-117); Anion Gap 5 (5-15); BUN 10 mg/dL (7-18); BUN/Creat Ratio 11.3 RATIO (10-20); Calcium,Total 9.2 mg/dL (8.5-10.1); Chloride 105 mmol/L (98-107); Creatinine, Serum 0.88 mg/dL (0.55-1.02); EST Glomerular Filtration Rate 77 mL/min (>60); Est Glom Filt Rate - Afr Amer 93 mL/min (>60); Globulin 3.5 g/dL (2.2-4.2); Glucose 88 mg/dL (74-106); Potassium 4.2 mmol/L (3.5-5.1); Protein, Total 7.6 g/dL (6.4-8.2); Sodium Level 139 mmol/L (136-145)
== END ==
PROVIDERS: PCP Internal Medicine; Visit Provider Internal Medicine
DX: I10 Essential (primary) hypertension (principal)
CPT/HCPCS: 36415; 80053

== ENCOUNTER 2021-11-19 11:17 | Outpatient (CLI) | payer OTHER, SELFPAY | END 2021-11-19 23:59 | disposition short-term general hospital (02) | LOC: LABSPEC 11:18 | PROVIDERS: PCP Internal Medicine; Referring Provider Physician Assistant Surgical; Visit Provider Physician Assistant Surgical | DX: U07.1 COVID-19 (principal) | CPT/HCPCS: 87635; U0003; U0005 ==

== ENCOUNTER 2021-11-22 17:40 | Outpatient (CLI) | payer OTHER, SELFPAY ==
[2021-11-22 17:48] VITALS: BP 133/92; PULSE 65; RESP 16; TEMP 36.8; O2SAT 99; BMI 35.2
[2021-11-22] MEDS: 0.9% Saline Lock 10 ML Syringe IV (18:06)
[2021-11-22 18:28] VITALS: BP 108/78; PULSE 65; RESP 16; TEMP 36.6; O2SAT 97
[2021-11-22 19:17] VITALS: BP 117/83; PULSE 60; RESP 16; TEMP 36.6; O2SAT 99
== END 2021-11-22 23:59 | disposition home or self-care (01) ==
LOC: MS3OUT 17:41 → MS3 17:41
PROVIDERS: PCP Internal Medicine; Referring Provider Nurse Practitioner Adult Health; Visit Provider Nurse Practitioner Adult Health
DX: Z23 Encounter for immunization (principal); U07.1 COVID-19
CPT/HCPCS: J7050; M0243; A4216; Q0244

== ENCOUNTER → 2022-08-29 | Outpatient (CLI) | payer OTHER, SELFPAY ==
[2022-08-29 10:14] LABS: Absolute Lymphocyte Count 2.57 X10^3/uL (0.83-4.51); Basophil# 0.06 X10^3/uL; Basophil% 0.6 % (0-1); Eosinophil# 0.09 X10^3/uL; Hematocrit 41.3 % (37-47); Hemoglobin 13.4 g/dL (12.0-15.0); Lymphocyte # 2.57 X10^3/ul (0.83-4.51); Lymphocyte % 27.2 % (19-41); Mean Corp Hgb Conc 32.4 g/dL (32-36); Mean Corpuscular Hgb 29.5 pg (27.0-32.0); Mean Corpuscular Volume 90.8 fL (81-99); Monocyte# 0.69 X10^3/uL; Monocyte% 7.3 % (0-10); NRBC Flagged by Analyzer 0 % (0-5); Neutrophil # 6.03 X10^3/uL (2.7-7.7); Neutrophil % 63.7 % (47-70); Platelet Count 262 K/mm3 (150-450); RBC Distribution Width CV 12.8 % (11.6-14.6); RBC Distribution Width SD 41.6 fl (35.1-43.9); Red Blood Count 4.55 M/mm3 (4.2-5.4); White Blood Count 9.5 K/mm3 (4.4-11.0)
[2022-08-29 10:51] LABS: ALB/GLOB Ratio 1.1 RATIO (0.9-2.4); AST(SGOT) 12 U/L (15-37); Alanine Aminotransfer ALT/SGPT 20 U/L (13-56); Alkaline Phosphatase 73 U/L (45-117); Anion Gap 6 (5-15); BUN 11 mg/dL (7-18); BUN/Creat Ratio 13.3 RATIO (10-20); Chloride 108 mmol/L (98-107); Cholesterol 184 mg/dL (200); Creatinine, Serum 0.83 mg/dL (0.55-1.02); EST Glomerular Filtration Rate 82 mL/min (>60); Est Glom Filt Rate - Afr Amer 100 mL/min (>60); Globulin 3.6 g/dL (2.2-4.2); Glucose 95 mg/dL (74-106); High Density Lipoprotein 35 mg/dL; Potassium 4.4 mmol/L (3.5-5.1); Protein, Total 7.6 g/dL (6.4-8.2); Sodium Level 139 mmol/L (136-145); Thyroid Stim Hormone (TSH) 5.67 uIU/mL (0.358-3.74); Triglycerides 118 mg/dL; Very Low Density Lipoprotein 24 mg/dL (5-40)
== END | disposition home or self-care (01) ==
LOC: LAB 08:37
PROVIDERS: PCP Internal Medicine; Referring Provider Internal Medicine; Visit Provider Internal Medicine
DX: Z00.00 Encounter for general adult medical examination without abnormal findings (principal); E03.9 Hypothyroidism, unspecified
CPT/HCPCS: 36415; 80053; 80061; 84443; 85025

== ENCOUNTER → 2022-09-30 | Outpatient (CLI) | payer OTHER, SELFPAY ==
[2022-09-30 17:23] LABS: Thyroid Stim Hormone (TSH) 2.23 uIU/mL (0.358-3.74)
== END | disposition home or self-care (01) ==
LOC: BIMLAB 16:08
PROVIDERS: PCP Internal Medicine; Referring Provider Internal Medicine; Visit Provider Internal Medicine
DX: E03.9 Hypothyroidism, unspecified (principal)
CPT/HCPCS: 36415; 84443

== ENCOUNTER → 2022-10-03 | Outpatient (CLI) | payer OTHER, SELFPAY ==
--- NOTE | 2022-10-03 08:55 | US_ITS ---
STUDY: ABDOMINAL ULTRASOUND - RIGHT UPPER QUADRANT REASON FOR VISIT: Female, 37 years old RUQ/Epigastric Abd pain TECHNIQUE: Ultrasound evaluation of the right upper quadrant was performed with real-time and static ariza-scale imaging. TECHNICAL QUALITY: Adequate. COMPARISON: None. FINDINGS: Liver: The liver is slightly enlarged and measures 18.2 cm. There is normal echogenicity of the liver. The bile ducts are within normal limits. There is hepatic color flow. The direction of portal flow is hepatopetal. There is no demonstrated mass lesion. Gallbladder: Normal distended gallbladder. The gallbladder wall measures 2.0 mm. There is a negative sonographic Barba''s sign. There is no pericholecystic fluid. There are multiple echogenic structures within the gallbladder, consistent with multiple gallstones. Common Bile Duct (C.B.D.): The common bile duct measures 5 mm. Pancreas: Normal size of the head, body and tail of the pancreas. There is normal echogenicity of the pancreas. There is no demonstrated pancreatic mass or cyst. Right Kidney: Normal size of the right kidney. The right kidney measures 10.4 cm x 5.6 cm x 5 cm. Normal renal cortex. The right cortex measures 1.6 cm. There is no demonstrated renal mass or cyst. There is no right hydronephrosis. US/Abdomen Limited IMPRESSION: Mild hepatomegaly. Multiple gallstones. Electronically Signed: Miguel Angel Shepherd MD at 10:52 EST ,
== END | disposition home or self-care (01) ==
LOC: US 08:54
PROVIDERS: PCP Internal Medicine; Referring Provider Physician Assistant; Visit Provider Physician Assistant
DX: R10.9 Unspecified abdominal pain (principal)
CPT/HCPCS: 76705

== ENCOUNTER 2022-11-01 10:48 | Day surgery (SDC) | payer OTHER, SELFPAY ==
[2022-10-31 12:55] LABS: Hematocrit 39.4 % (37-47); Hemoglobin 12.1 g/dL (12.0-15.0); Mean Corp Hgb Conc 30.7 g/dL (32-36); Mean Corpuscular Hgb 28.2 pg (27.0-32.0); Mean Corpuscular Volume 91.8 fL (81-99); Mean Platelet Vol. 12.6 fl (6.2-12.0); Platelet Count 279 K/mm3 (150-450); RBC Distribution Width CV 12.8 % (11.6-14.6); RBC Distribution Width SD 42.8 fl (35.1-43.9); Red Blood Count 4.29 M/mm3 (4.2-5.4); White Blood Count 8.4 K/mm3 (4.4-11.0)
[2022-10-31 13:34] LABS: ALB/GLOB Ratio 1.1 RATIO (0.9-2.4); AST(SGOT) 25 U/L (15-37); Alanine Aminotransfer ALT/SGPT 194 U/L (13-56); Alkaline Phosphatase 107 U/L (45-117); Amylase 45 U/L (25-115); Anion Gap 4 (5-15); BUN 10 mg/dL (7-18); BUN/Creat Ratio 13.3 RATIO (10-20); Calcium,Total 8.8 mg/dL (8.5-10.1); Chloride 106 mmol/L (98-107); Creatinine, Serum 0.75 mg/dL (0.55-1.02); EST Glomerular Filtration Rate 92 mL/min (>60); Est Glom Filt Rate - Afr Amer 111 mL/min (>60); Globulin 3.7 g/dL (2.2-4.2); Glucose 88 mg/dL (74-106); Lipase 80 U/L (73-393); Potassium 3.8 mmol/L (3.5-5.1); Protein, Total 7.7 g/dL (6.4-8.2); Sodium Level 140 mmol/L (136-145); Thyroid Stim Hormone (TSH) 2.86 uIU/mL (0.358-3.74)
[2022-11-01] VITALS (11 sets, daily range): BP systolic 107–125; BP diastolic 71–91; PULSE 57–101; RESP 16–18; TEMP 36.5–36.8; O2SAT 96–100; BMI 34.2
--- NOTE | 2022-11-01 10:59 | EKG12_ITS ---
Test Reason : PRE-OP Blood Pressure : / mmHG Vent. Rate : 065 BPM Atrial Rate : 065 BPM P-R Int : 134 ms QRS Dur : 096 ms QT Int : 418 ms P-R-T Axes : 020 015 022 degrees QTc Int : 434 ms Normal sinus rhythm with sinus arrhythmia Normal ECG Confirmed by MARYJO MONTEIRO, KATALINA ([id number]), legal editor BENITO DE LOS SANTOS ([id number]) on 11/04/2022 1:13:43 PM Referred By: Ok Connell Confirmed By:KATALINA SIBLEY MD
[2022-11-01 11:07] LABS: Internal QC Validated? YES +Cl - CLEAR BKGD
[2022-11-01 11:11] LABS: Pregnancy, Serum, hCG Quali. NEGATIVE Negative
[2022-11-01] MEDS: Lactated Ringers 1,000 ML 15 ML IV (11:23)
--- NOTE | 2022-11-01 12:20 | PCM.HP.BLA ---
History and Physical Date of Admission: 11/01/22 Visit Reasons:?GALLBLADDER Chief Complaint: gallstone In Home Baby Sitter Required: No Is patient in pain?: Yes (RUQ abdomen) Allergies sulfamethoxazole [From Bactrim] Allergy (Verified 10/29/22 14:10) Hivestrimethoprim [From Bactrim] Allergy (Verified 10/29/22 14:10) Hives Medications hydrocortisone 2.5 % topical cream 1 applic topical BID PRN skin irritation #30 grams 04/04/22 [Rx Confirmed 10/29/22] levothyroxine 100 mcg tablet (Synthroid) 100 mcg PO DAILY hypothyroid #60 tabs 09/02/22 [Rx Confirmed 10/29/22] PFSH Medical History? Autoimmune disease Cellulitis Elevated liver enzymes Hypertension Hypothyroid Hypothyroidism Irritant contact dermatitis Low serum cortisol level Mastitis MRSA infection Nipple dermatitis PCOS (polycystic ovarian syndrome) hypertension Pre-eclampsia Preventative health care Thyroid disorder Surgical History? Previous section Family History? Mother Thyroid disorder Martha's diseaseFather Cancer ?? ? LUNG CANCER HypertensionGrandmother Arthritis Diabetes Heart diseaseGrandfather Diabetes Social History? Smoking Status:? Never smoker alcohol intake:? never substance use type:? does not use what type of physical activity do you participate in:? walking and running frequency:? 1-2 times per week HPI HPI HPI: 47-year-old female who is referred by Deborah Ott PA-C for surgical consultation regarding abdominal pain and recurrent copy of my surgical consult will return to her.? By report the patient was seen in the emergency room in [facility] early September with complaint of low-grade fever nausea abdominal pain vomiting diarrhea.? After office evaluation on October 03, 2022 at the [facility] she had right upper quadrant ultrasound showing mild hepatomegaly and multiple gallstones.? Common bile duct measures 5 mm. Patient states that her first episode was September 26, 2022.? Right upper quadrant pain radiating to her back.? She states that she has had however several ongoing episodes and one episode just 5 days ago of severe pain that woke her in the middle of the night.? At that point she said that she had dark urine for 2 days.? She states she has never been pain-free continues to have a dull ache in the right upper quadrant. She has had previous 3 previous recent C-sections all through Pfannenstiel incisions. She states that Dr. Yanet Pitts and Dr. Rohit Howe have followed her for some abnormal liver function tests.? On review of her liver function tests it appears that her total bilirubin has generally been elevated however she has had 2 bilirubins over the past period of time that have been completely within normal range.? Apparently the etiology to her abnormal liver function tests has not been determined or at least she is not aware of the reason. ROS General General: No weight change, appetite, fatigue, colon cancer, breast cancer or weakness HEENT HEENT: No difficulty swallowing, eye injury, eye surgery, swollen glands or hoarseness Endo Endocrine: Yes thyroid disease; No diabetes mellitus, thyroid cancer, Hair loss, heat intolerance or cold intolerance Skin Skin: No rash or changing moles Breast Breast: No left breast lump, right breast lump, nipple discharge, breast pain, abnormal mammogram, abnormal US or breast enlargement Musc Musculoskeletal: No back problems, arthritis, rheumatoid arthritis, gout or joint pain Cardio Cardiovascular: No murmur, pacemaker, heart disease, atrial fibrillation, high blood pressure, heart attack, heart stent, palpitations, shortness of breat with exertion or chest pain Psych Psychiatric: No depression, anxiety or hearing voices Resp Respiratory: No shortness of breath, No sleep apnea, No cough, No COPD, No asthma, No emphysema and No wheezing Gastro Gastrointestinal: Yes abdominal pain, Yes nausea or vomiting, No diarrhea, No constipation, No blood in stool, No acid reflux, Yes hemorrhoids, No ulcers, Yes gallbladder problem and No black,tarry stools Khurram Hematologic: No blood thinners, No blood disorders, No bleeding, No anemia and No blood clots Neuro Neurologic: No system reviewed and no additional complaints, except as documented, No as per HPI, No abnormal gait, No abnormal hearing, No abnormal movements, No abnormal speech, No behavioral changes, No burning sensations, No confusion, No convulsions, No disequilibrium, No dizziness, No localized weakness, No frequent falls, No headache(s), No lack of coordination, No loss of vision, No memory loss, No numbness, No other visual disturbances, No radicular pain, No restless legs, No sensory deficit, No syncope, No tingling, No tremor(s), No weakness and No other Exam Const General: cooperative, healthy appearing, comfortable and no acute distress Nutritional Appearance: overweight [facility] Head: normal to inspection Eyes General: appearance normal, both eyes and all related structures Neck Neck: normal visual inspection Chest Chest palpation & inspection: normal inspection of the chest Resp Effort & Inspection: normal respiratory effort Auscultation: clear to auscultation bilaterally Cardio Rate: regular rate Rhythm: regular rhythm GI Palpation: soft and no hepatosplenomegaly Auscultation: normal bowel sounds Skin General: no rashes or lesions noted Neuro General: patient alert, patient awake and patient oriented x3 Extrem General: no calf tenderness Psych Appearance: grossly normal Assessment and Plan Assessment and Plan (1) Cholelithiasis with chronic cholecystitis: ?Status:?Chronic ?Plan: I believe that this patient has chronic cholecystitis cholelithiasis biliary colic.? I am concerned about her intermittently waxing and waning total bilirubin level.? Although her common bile duct on ultrasound is 5 mm that of course is not definitive.? I recommend to her laparoscopic cholecystectomy with selective cholangiography.? I have discussed the technique, benefit, risk and alternatives.? I have additionally discussed with her the potential need for laparoscopic common bile duct exploration and or if need be postoperative ERCP.? She has had an opportunity to ask and have questions answered.? Because of her escalating symptoms and pain and urine discoloration I recommended proceeding at the earliest operative date available.? She has had an opportunity to ask and have questions answered we will schedule and expedite her care. Copy: CUAUHTEMOC Navarro M.D., F.A.C.S. The patient has slightly abnormal liver function test. I have discussed with her potential needle core liver biopsy. She is aware and concurs. History and physical otherwise remains constant. Ok Connell M.D., F.A.C.S.
--- NOTE | 2022-11-01 12:21 | DCINST_ITS ---
Discharge Instructions Procedure General Surgery Diet Discharge Diet: Light diet - advance as tolerated (if you have questions about your diet instructions, please talk to you doctor.) Activity Discharge Activity: May Not Drive (for 3-5 days or while taking narcotic pain medicine.) May shower in (days): 1 Lifting Restrictions: 10 pounds Dressing / Incision Call your doctor if your incision/area has: Continuous Slow Oozing, Sudden Increased Bleeding, Increased Pain/ Swelling, Increased Redness and Foul Smelling Discharge Call your doctor if you observe: Fever of 101 or Higher Suture Line Care: Avoid Pulling/Pushing and Avoid Pinching/Bending Additional Dressing/Incision Instructions:: Change or remove dressing in 4 days. Leave steri-strips in place for 1 week. Follow Up Care Please Follow Up With: Ok Connell MD When: Call [phone] to make an appointment to be seen in about 10 days. Test Results: Test results from this visit will be discussed in further detail at your follow- up appointment, if applicable. Discharge Plan Admission Attending Provider: Ok Connell Primary Care Provider: Rohit Howe Consulting Providers: Jt Grayson Discharge Orders/Prescriptions Prescriptions: No Action multivitamin Tablet 1 tab PO DAILY levothyroxine [Synthroid] 100 mcg tablet 100 mcg PO DAILY Qty: 60 2RF Referrals / Follow Up: Rohit Howe MD [Primary Care Provider] - Disposition Disposition (needs filled in before D/C Order can be placed): Home, Self Care
--- NOTE | 2022-11-01 12:50 | RAD_ITS ---
STUDY: INTRAOPERATIVE CHOLANGIOGRAM. REASON FOR EXAM: Female, 37 years old. LAP SHAHBAZ WITH IOC FLUOROSCOPY TIME (if supplied): ( 17 seconds ) minutes/seconds. 25 images were submitted. TECHNIQUE: Intraoperative cholangiogram was performed. COMPARISON: None. FINDINGS: The intra and extrahepatic biliary ducts are unremarkable. No intraluminal filling defect is seen. There is free flow of contrast into the duodenum. RAD/Cholangiogram/ O R,Initial IMPRESSION: Unremarkable intraoperative cholangiogram. Electronically Signed: Miguel Angel Shepherd MD at 15:38 EST ,
--- NOTE | 2022-11-01 12:50 | LIVB_PTH ---
PATIENT: KATE CONTRERAS LOC: [facility] [place] U[place][id number] AGE/SX: 37/F ROOM: RE11/01/[address]: Dr. Ok Connell MD : 1985 BED: DIS: 11/01/2022 SPEC #: [id number] RECD: 11/01/22 14:50 STATUS: MESHA RE #: [id number] DANIEL: 11/01/22 12:[address]: Ok Connell DEPT: SURGICAL PATHOLOGY RECD BY: Marie Kelly ENTERED: 11/04/22 08:58 SP TYPE: LIVER BX OTHR DR: MD Dr. Rohit Tang MD Tissues: A - Gallbladder, NOS B - Liver, NOS Procedures: PAS with Diastase (control) Trichrome (control) Special Stain Group II PAS Stain (control) Surgery Specimen Level III Surgery Specimen Level V Retic (control) Iron Stain (control) HEADER OPERATION: Laparoscopic cholecystectomy with IOC PRE-OP DIAGNOSIS: Cholelithiasis with chronic cholecystitis TISSUE SUBMITTED: A ? Gallbladder, B ? Liver biopsy MICROSCOPIC DIAGNOSIS A. Gallbladder, cholecystectomy: Cholesterolosis, chronic cholecystitis and cholelithiasis. Benign pericystic lymph node. B. Liver, biopsy: Minimal chronic inflammation, grade 1. No evidence of cirrhosis. See comment. AM:misty 11/05/2022 COMMENT Sections show minimal portal inflammation without necrosis and/or lobular inflammation. Reticulin stain with matched control reveals normal hepatic parenchymal architecture. Iron stain does not reveal intraparenchymal deposition of iron. PAS and PASD do not reveal accumulation of abnormal proteins. Trichrome stain does not reveal fibrosis or cirrhosis. All matched controls are appropriate. MICROSCOPIC DESCRIPTION Slides are reviewed. GROSS DESCRIPTION A - Received is one container labeled with the patient's name and designated gallbladder. The specimen consists of a gallbladder measuring 8 cm in length and 3.5 cm in diameter. The external surface is pink-wynne, smooth and glistening for the most part. Focally it is granular, hemorrhagic and contains cautery artifact. The gallbladder contains green-yellow mucoid bile and multiple mulberry, yellowish stones measuring in aggregate 4 x 3.5 x 1 cm and 0.1 to 0.5 cm in greatest dimension. The mucosa is bile-stained and without any mass lesions. The gallbladder wall measures up to 0.3 cm in thickness. Hand Heel Seat Fitter sections from the gallbladder and the cystic duct are submitted in one cassette. B - Received in fixative is one container labeled with the patient's name and designated liver biopsy. The specimen consists of an elongated piece of brown soft tissue measuring 0.4 cm in length and 0.1 cm in diameter. The specimen is totally submitted in one cassette. / SJ:rg 11/04/2022 TC:3 CPT: 53332, 09159, 94454 x5
[2022-11-01] MEDS: Cefazolin 2 GM in 0.9% Normal Saline 100 ML IV (12:53)
[2022-11-01] MEDS: Bupivacaine 0.25% 30 ML Vial (14:18)
--- NOTE | 2022-11-01 14:21 | OP.PCM_ITS ---
Report of Operation Date of Procedure: 11/01/22 Pre-Operative Diagnosis: Chronic cholecystitis cholelithiasis, abnormal liver f unction tests Post-Operative Diagnosis: Same Surgery/Procedure Performed:: Laparoscopic cholecystectomy with cholangiograms. Laparoscopic right lobe liver needle core biopsy Description of Surgical Findings:: Timeout informed consent was obtained. 37-year-old female was taken to the operating placed upon the table underwent general endotracheal ovation esthesia Ancef 2 g were given intravenously the abdomen sterilely prepped and draped 0.25% Marcaine was used as a local anesthetic a total of 30 cc was used skin sites were reanesthetized a vertical infraumbilical incision was created holding sutures of 0 Vicryl placed varies needle inserted saline drop test performed the abdomen was insufflated with CO2 to a pressure of 12 mmHg pressure 10 mm trocar was inserted 10 and the laparoscope inserted no monitoring trocar injuries 5 mm trochars were placed in the epigastric mid abdomen right upper quadrant the gallbladder was distracted had adhesions of omentum these were dissected free with sharp dissection electrocautery dissection and blunt dissection was instituted at the infundibulum Hem-o-papo clips were used were necessary for hemostasis circumferential control was obtained of the cystic duct and the cystic artery was identified Hem-o-papo clip was placed on the cystic duct stump and incision made in the cystic duct and through a 14-gauge Angiocath cholangiogram catheter was inserted fluoroscopically controlled cholangiograms were obtained demonstrating normal ductal anatomy and for quite in fact quite small ductal anatomy and free flow into the small bowel cholangiogram catheter was removed 2 Hem-o-papo clips were placed on the cystic duct stump prior to transecting it the cystic artery was secured twice proximally and once distally with Hem-o-papo clips prior to transecting that the gallbladder is dissected free from the liver bed a posterior cystic artery was identified and secured with Hem-o-papo clips the gallbladder was released from the liver bed there was no spillage was placed in retrieval bag the right upper quadrant was irrigated and aspirated free of excess fluid 2 pieces of fibrillar was placed in the liver bed to absolutely assure hemostasis. The then because of preoperative abnormal liver function test needle core biopsy was obtained of the right lobe of the liver unfortunately the device failed to take samples on 2 cores and and I was able on the third attempt to get half a core I treated those biopsy sites with electrocautery and allow the abdomen deflate waited several minutes reinflated the abdomen reinspected that and they were all hemostatic. The gallbladder was removed at the umbilicus the abdomen was allowed to deflate through an antiviral valve trochars were removed the fascia at the umbilicus department opted 0 Vicryl [id number] suture skin edges approximated opted for Monocryl subdermal stitches Steri-Strips Telfa OpSite dressings applied sponge and instrument and needle counts were reported to the surgeon to be correct Specimens gallbladder and core right lobe liver. Drains none. Blood loss 10 cc. The patient was taken to the recovery room in satisfactory addition without apparent complication Ok Connell M.D., F.A.C.S. Surgeon: Ok Connell Type of Anesthesia: General and Local Anesthesiologist: Roberth Blankenship
--- NOTE | 2022-11-01 17:00 | SUR.PHASEII ---
Pt assisted by this nurse to use the restroom. pt voided without hesitation and voided large amount. pt notes no burning or pain while urinating.
[2022-11-01] MEDS: Acetaminophen 325 MG Tablet 650 MG PO (17:15)
== END 2022-11-01 17:50 | disposition home or self-care (01) ==
LOC: SDC 10:48 → AC 10:49
PROVIDERS: Anesthesiology; PCP Internal Medicine; Referring Provider Surgery; Visit Provider Surgery
PROC: (CPT 47610; principal; 2022-11-01 12:30)
DX: K80.10 Calculus of gallbladder with chronic cholecystitis without obstruction (principal); M35.9 Systemic involvement of connective tissue, unspecified; R16.0 Hepatomegaly, not elsewhere classified; E03.9 Hypothyroidism, unspecified; I10 Essential (primary) hypertension; Z86.16 Personal history of COVID-19; R74.8 Abnormal levels of other serum enzymes
CPT/HCPCS: 47563; 47379; 36415; 74300; 76000; 80053; 82150; 83690; 84443; 84703; 85027; 88304; 88307; 88313; 93005; J7120; J1610; J2405

== ENCOUNTER → 2023-09-15 | Outpatient (CLI) | payer OTHER, SELFPAY ==
[2023-09-15 12:08] LABS: Absolute Lymphocyte Count 2.68 X10^3/uL (0.83-4.51); Absolute Neutrophil Count 2.7 X10^3/uL (2.0-7.7); Basophil# 0.07 X10^3/uL; Basophil% 1.2 % (0-1); Eosinophil# 0.07 X10^3/uL; Eosinophils% 1.2 % (0-5); Hematocrit 42.2 % (37-47); Hemoglobin 13.4 g/dL (12.0-15.0); Lymphocyte # 2.68 X10^3/ul (0.83-4.51); Lymphocyte % 44.8 % (19-41); Mean Corp Hgb Conc 31.8 g/dL (32-36); Mean Corpuscular Hgb 28.6 pg (27.0-32.0); Mean Corpuscular Volume 90.2 fL (81-99); Mean Platelet Vol. 12.5 fl (6.2-12.0); Monocyte# 0.45 X10^3/uL; Monocyte% 7.5 % (0-10); NRBC Flagged by Analyzer 0 % (0-5); Neutrophil # 2.69 X10^3/uL (2.7-7.7); Platelet Count 242 K/mm3 (150-450); RBC Distribution Width CV 12.6 % (11.6-14.6); RBC Distribution Width SD 41.1 fl (35.1-43.9); Red Blood Count 4.68 M/mm3 (4.2-5.4)
[2023-09-15 12:37] LABS: ALB/GLOB Ratio 1.1 RATIO (0.9-2.4); AST(SGOT) 7 U/L (15-37); Alanine Aminotransfer ALT/SGPT 25 U/L (13-56); Albumin, Serum 3.9 g/dL (3.2-5.0); Alkaline Phosphatase 60 U/L (45-117); Anion Gap 1 (5-15); BUN 10 mg/dL (7-18); BUN/Creat Ratio 11.8 RATIO (10-20); Calcium,Total 8.6 mg/dL (8.5-10.1); Chloride 110 mmol/L (98-107); Cholesterol 171 mg/dL (200); Creatinine, Serum 0.84 mg/dL (0.55-1.02); EST Glomerular Filtration Rate 80 mL/min (>60); Est Glom Filt Rate - Afr Amer 97 mL/min (>60); Globulin 3.7 g/dL (2.2-4.2); Glucose 96 mg/dL (74-106); High Density Lipoprotein 39 mg/dL; Potassium 4.2 mmol/L (3.5-5.1); Protein, Total 7.6 g/dL (6.4-8.2); Sodium Level 136 mmol/L (136-145); Thyroid Stim Hormone (TSH) 2.93 uIU/mL (0.358-3.74); Triglycerides 75 mg/dL; Very Low Density Lipoprotein 15 mg/dL (5-40)
== END | disposition home or self-care (01) ==
LOC: BIMLAB 10:05
PROVIDERS: PCP Internal Medicine; Visit Provider Internal Medicine
DX: Z00.00 Encounter for general adult medical examination without abnormal findings (principal); E03.9 Hypothyroidism, unspecified
CPT/HCPCS: 36415; 80053; 80061; 84443; 85025

== ENCOUNTER → 2023-10-24 | Outpatient (CLI) | payer OTHER, SELFPAY ==
--- NOTE | 2023-10-24 10:53 | US_ITS ---
INDICATION: EXCESSIVE AND FREQUENT MENSTRUATION EXAMINATION: Ultrasound US Transvaginal Non-OB TECHNIQUE: Transvaginal (for optimal evaluation of the adnexa) pelvic ultrasound was performed. Grayscale, spectral waveform, and color flow Doppler evaluation of the adnexa. COMPARISON: FINDINGS: UTERUS: Retroverted. The uterus measures 9.3 x 6.9 x 5.0 cm. There is a 1.4 cm fibroid. The endometrial stripe measures 3 mm in AP diameter with echogenic foci up to 3mm and trace endometrial fluid. Nabothian cysts. RIGHT OVARY: 3.8 x 3.2 x 2.5 cm. Non-enlarged, normal echogenicity. There is normal arterial inflow and venous outflow present in the right ovary. LEFT OVARY: 3.7 x 2.9 x 2.6 cm. Non-enlarged, normal echogenicity. There is normal arterial inflow and venous outflow present in the left ovary. FREE FLUID: None. US/Transvaginal Non- IMPRESSION: Retroverted uterus with echogenic foci in the endometrium and trace endometrial fluid. Nabothian cysts. Electronically Signed: Delfino Kay DO at 19:27 EST Reading Location ID and State: [facility] / [place] Tel [phone], Service support ,
[2023-10-24 10:58] LABS: Hematocrit 38.6 % (37-47); Hemoglobin 12.6 g/dL (12.0-15.0); Mean Corp Hgb Conc 32.6 g/dL (32-36); Mean Corpuscular Volume 88.7 fL (81-99); Mean Platelet Vol. 11.1 fl (6.2-12.0); Platelet Count 248 K/mm3 (150-450); RBC Distribution Width CV 12.6 % (11.6-14.6); RBC Distribution Width SD 41.6 fl (35.1-43.9); Red Blood Count 4.35 M/mm3 (4.2-5.4); White Blood Count 5.8 K/mm3 (4.4-11.0)
[2023-10-24 11:41] LABS: T3 Total - Triiodothyronine 0.91 ng/mL (0.6-1.81)
[2023-10-24 11:45] LABS: Free T3 2.2 pg/mL (2.18-3.98); T4 Free Direct 1.13 ng/dL (0.76-1.46); Thyroid Stim Hormone (TSH) 3.63 uIU/mL (0.358-3.74)
== END | disposition home or self-care (01) ==
LOC: US 10:40
PROVIDERS: PCP Internal Medicine; Referring Provider Obstetrics & Gynecology; Visit Provider Obstetrics & Gynecology
DX: N92.1 Excessive and frequent menstruation with irregular cycle (principal); E28.2 Polycystic ovarian syndrome; E03.9 Hypothyroidism, unspecified
CPT/HCPCS: 36415; 76830; 84439; 84443; 84480; 84481; 85027

== ENCOUNTER → 2023-12-13 | Outpatient (CLI) | payer OTHER, SELFPAY ==
--- OUTSIDE RECORDS SUMMARY | 2023-12-13 11:31 | XMS RPT_ITS | CCD ---
Author Name Unknown Address [address] [place] [address] Organization [facility] Care Team Providers Care Vending Mechanic Name Role Phone Briana Caba Unavailable Unavailabl Briana Abbott Unavailable Unavailabl e Tash Agee R Unavailable Unavailable Jumana Ageeth R Unavailable Unavailable Usman Mcdonald Unavailable Unavailable Usman Mcdonald Unavailable Unavailable Usman Mcdonald Unavailable Unavailable Briana Caba Primary Care Provider Briana Caba Unavailable [phone] TASH AGEE Admitting U yomaira MACKBRIANA RAMOS LUZ Primary Care UnavailTASH Dimas Attending U [facility] Primary Care Unavailabl e ALBERT YOU Attending Unavail able TASH AGEE Primary Care U Tash Thomas Primary Care Prov ider NISHA ORTEGA MD Primary Care Physician [phone] NISHA ORTEGA MD Primary Care Unavailab LOYD Metz Attending Unavailable Unavailable Primary Care Provider Unavailabl e Allergies Allergy Classification Reported Allergen(s) Allergy Type Date of Onset Reaction(s) Facility (8 sources) sulfamethoxazole / trimethoprim; Translations: [Unknown] Propensity to adverse reactions to drug 11-27-19 16 [facility] (1 source) sulfamethoxazole / trimethoprim; Translations: [Bactrim] Drug Allergy [facility] (2 sources) Sulfamethoxazole; Translations: [Unknown] Drug Allergy 04-16-20 17 [facility] Medications Current Medications Medication Drug Class(es) Dates Sig (Normalized) Sig (Original) doxycycline hyclate 100 mg oral tablet (1 source) Tetracycline-clas s Drug Start: 01-18-2023 End: 01-25-2023 take 1 tablet by mouth twice daily doxycycline (VIBRA-TABS) 100 mg tablet Take 1 tablet by mouth twice daily for 7 days. 14 tablet 0 01/18/2023 01/25/2023 Active Completed/Discontinued Medications Medication Drug Class(es) Dates Sig (Normalized) Sig (Original) levothyroxine sodium 0.1 mg oral tablet (3 sources) l-Thyroxine Start: 01-02-2023 take 1 tablet by mouth once daily levothyroxine (SYNTHROID) 100 mcg tablet TAKE 1 TABLET BY MOUTH ONCE DAILY FOR HYPOTHYROID 0 01/02/2023 Active Problems Active Problems Problem Classification Problem Date Documented Da te Episodic/Chronic Abdominal pain (1 source) Abdominal pain; Translations: [Unspecified abdominal pain] Onset: 09-26-2022 Episodic Menstrual disorders (3 sources) Irregular periods; Translations: [Menstrual irregularity] Onset: 03-31-2020 03-31-2020 Chronic Nonspecific chest pain (1 source) Chest pain; Translations: [Chest pain, unspecified] Onset: 09-26-2022 Episodic Other endocrine disorders (1 source) Polycystic ovaries; Translations: [PCOS (polycystic ovarian syndrome)] Onset: 07-04-2014 07-04-2014 Chronic Other endocrine disorders (2 sources) Polycystic ovarian syndrome; Translations: [PCOS (polycystic ovarian syndrome)] Onset: 07-04-2014 07-04-2014 Chronic Other lower respiratory disease (2 sources) Cough; Translations: [Acute cough] Episodic Other nutritional; endocrine; and metabolic disorders (4 sources) Obesity; Translations: [Obesity, unspecified classification, unspecified obesity type, unspecified whether serious comorbidity present] Onset: 03-31-2020 03-31-2020 Chronic Other upper respiratory infections (1 source) Bacterial sinusitis; Translations: [Chronic sinusitis, unspecified] Chronic Thyroid disorders (3 sources) Hypothyroidism; Translations: [Thyroid activity decreased] Onset: 11-27-2015 11-27-2015 Chronic Unclassified (1 source) Patient encounter status; Translations: [Well adult health check] Past or Other Problems Problem Classification Problem Date Documented Da te Episodic/Chronic Residual codes; unclassified (3 sources) Family history of other endocrine, nutritional and metabolic diseases; Translations: [Family history of Martha thyroiditis] Onset: 03-31-2020 03-31-2020 Episodic Unclassified (3 sources) Increased prolactin level; Translations: [Prolactin increased (HCC)] Onset: 11-27-2015 11-27-2015 Episodic Results Test Name Value Interpretation Reference Range Facil ity Vital Signs Date Time Vital Sign Value Performing Clinician Facility 01-18-2023 15:36-0500 Body temperature 98.49 [degF] Leonel Blas FINAL INSPECTOR PAPER.FOOD SCIENCE TECHNICIAN Work Phone: [facility] 01-18-2023 15:36-0500 Body weight 81.28 kg Leonel Odonnell FINAL INSPECTOR PAPER.FOOD SCIENCE TECHNICIAN Work Phone: [facility] 01-18-2023 15:36-0500 Diastolic blood pressure 84 mm[Hg] Leonel Odonnell FINAL INSPECTOR PAPER.FOOD SCIENCE TECHNICIAN Work Phone: [facility] 01-18-2023 15:36-0500 Heart rate 90 /min Leonel Odonnell FINAL INSPECTOR PAPER.FOOD SCIENCE TECHNICIAN Work Phone: [facility] 01-18-2023 15:36-0500 Respiratory rate 16 /min Leonel Odonnell FINAL INSPECTOR PAPER.FOOD SCIENCE TECHNICIAN Work Phone: [facility] 01-18-2023 15:36-0500 SaO2% (BldA) [Mass fraction] 95 % Leonel Odonnell FINAL INSPECTOR PAPER.FOOD SCIENCE TECHNICIAN Work Phone: [facility] 01-18-2023 15:36-0500 Systolic blood pressure 136 mm[Hg] Leonel Odonnell FINAL INSPECTOR PAPER.FOOD SCIENCE TECHNICIAN Work Phone: [facility] 01-15-2023 08:24-0500 Body temperature 98.4 [degF] Edmund Teresa MD Work Phone: [facility] 01-15-2023 08:24-0500 Body weight 80.83 kg Edmund Teresa MD Work Phone: [facility] 01-15-2023 08:24-0500 Diastolic blood pressure 80 mm[Hg] Edmund Teresa MD Work Phone: [facility] 01-15-2023 08:24-0500 Heart rate 80 /min Edmund Teresa MD Work Phone: [facility] 01-15-2023 08:24-0500 Respiratory rate 21 /min Edmund Teresa MD Work Phone: [facility] 01-15-2023 08:24-0500 SaO2% (BldA) [Mass fraction] 99 % Edmund Teresa MD Work Phone: [facility] 01-15-2023 08:24-0500 Systolic blood pressure 110 mm[Hg] Edmund Teresa MD Work Phone: [facility] 09-26-2022 21:13-0500 Diastolic Blood Pressure Non-Invasive 76 1 LOYD REICHFIELD DO [facility] 09-26-2022 21:13-0500 Heart rate 81 /min LOYD REICHFIELD DO [facility] 09-26-2022 21:13-0500 Reason For Taking VItal Signs LOYD REICHFIELD DO [facility] 09-26-2022 21:13-0500 Respiratory rate 16 /min LOYD REICHFIELD DO [facility] 09-26-2022 21:13-0500 Systolic Blood Pressure Non-Invasive 104 1 LOYD REICHFIELD DO [facility] 09-26-2022 18:47-0500 Diastolic Blood Pressure Non-Invasive 79 1 LOYD REICHFIELD DO [facility] 09-26-2022 18:47-0500 Heart rate 95 /min LOYD REICHFIELD DO [facility] 09-26-2022 18:47-0500 Reason For Taking VItal Signs LOYD REICHFIELD DO [facility] 09-26-2022 18:47-0500 Respiratory rate 20 /min LOYD REICHFIELD DO [facility] 09-26-2022 18:47-0500 Systolic Blood Pressure Non-Invasive 113 1 LOYD REICHFIELD DO [facility] 09-26-2022 18:11-0500 Body temperature 98.96 [degF] LOYD REICHFIELD DO [facility] 09-26-2022 18:11-0500 Body weight 84.1 kg LOYD REICHFIELD DO [facility] 09-26-2022 18:11-0500 Diastolic Blood Pressure Non-Invasive 87 1 LOYD REICHFIELD DO [facility] 09-26-2022 18:11-0500 Heart rate 92 /min LOYD REICHFIELD DO [facility] 09-26-2022 18:11-0500 Respiratory rate 24 /min LOYD REICHFIELD DO [facility] 09-26-2022 18:11-0500 Systolic Blood Pressure Non-Invasive 128 1 LOYD REICHFIELD DO [facility] 03-31-2020 14:30-0400 BMI (Body Mass Index) 34.18 kg/m2 [facility] 03-31-2020 14:30-0400 Body Temperature 97.81 [degF] [facility] 03-31-2020 14:30-0400 Body weight 79.38 kg [facility] 03-31-2020 14:30-0400 BP Diastolic 82 mm[Hg] [facility] 03-31-2020 14:30-0400 BP Systolic 124 mm[Hg] Tash Agee [facility] 03-31-2020 14:30-0400 Height 152.4 cm Tash Agee [facility] 03-31-2020 14:30-0400 Pulse (Heart Rate) 64 /min Tash Agee [facility] Encounters Encounter Date Encounter Type Care Provider Facility Start: 01-18-2023 End: 01-18-2023 ambulatory Facility:[facility] Start: 01-18-2023 End: 01-18-2023 Office outpatient visit 25 minutes Leonel Odonnell APRN.FOOD SCIENCE TECHNICIAN Work Phone: [facility] Procedures Date Procedure Procedure Detail Performing Clinician Start: 08-19-2016 Microscopic observat ion [Identifier] in Cervix by Cyto stain Tash Agee section LOYD DOBSON FIELD DO Plan of Treatment Date Care Activity Detail Author Start: 11-17-2022 DEPRESSION ASSESSMENT DEPRESSION ASS ESSMENT [facility] Start: 07-18-2022 Influenza vaccination INFLUENZA (#1) [facility] Start: 08-19-2021 Screening for malign ant neoplasm of cervix PAP SMEAR [facility] Start: 03-31-2021 History and physical examination, annual for health maintenance Wellness Visit [facility] Start: 07-18-2020 Influenza vaccinatio n given [facility] Start: 07-01-2020 End: 03-31-2021 Complete blood count with white cell differential, manual CBC and Differential Lab Routine Well adult health check Expected: 07/01/2020 (Approximate), Expires: 03/31/2021 [facility] Payers Date Payer Category Payer Unknown [id number] 2019 Unknown xxxxxxxxx [id number] 2019 Unknown [id number] 2017 Unknown 1985 Unknown [id number] [id number] 1985 Unknown [id number] [id number]. [id number] 1985 Unknown [id number] [id number]. [id number] 1985 Unknown [id number] [facility] [id number] Social History Date Type Detail Facility Start: 03-03-2016 End: 01-15-2023 Tobacco smoking status NHIS Never smoker [facility] Start: 1985 Sex Assigned At Not on file [facility] Start: 03-31-2020 End: 05-22-2020 Alcohol intake Current non-drinker of alcohol (finding) [facility] Exposure to SARS-CoV-2 (event) Not sure [facility] Sex Assigned At Female [facility] Start: 01-15-2023 Tobacco use and exposure Smokeless tobacco non-user [facility] NEGATED: Highlighted rowStart: NINF History of tobacco use Passive smoker [facility] Functional Status Date Assessment Result Facility 09-26-2022 Functional Status Standard Safet y ID band on, Call device within reach, Bed in low position, Wheels locked, Bedside Cart Locked, Visitor at bedside, Safety level maintained [facility] 09-26-2022 Functional Status [facility] Mental Status Date Assessment Result Facility 09-26-2022 Mental Status Oriented x 4 [facility] 09-26-2022 Mental Status [facility] Clinical Notes 09-26-2022 to 01-18-2023 Leonel Odonnell APRN.CNP - 01/18/2023 3:36 PM Shahnaz Teresa MD - 01/15/2023 8:29 AM EST Note Date & Type Note Facility 01-18-2023 Note HNO ID: [id number] Author: Leonel Odonnell APRN.ZEKE Service: ? Author Type: Nurse Practitioner Type: Progress Notes Filed: 01/18/2023 3:50 PM Note Text: Subjective HPI Nontoxic-appearing female presents urgent care chief complaint possible sinus infection. Patient states she has had sinus pressure and cough for 8 to 10 days. Has not improved cough and sinus pressure has worsened over the last few days. Denies any OTC medication use. Sick contacts similar signs symptoms at home. Denies any fever body aches chills productive cough chest pain shortness of breath pleuritic pain hemoptysis nausea vomiting abdominal pain change in bowel or bladder habits. Past medical history prescription medication use and allergies reviewed. Denies chance of . Is not breast-feeding. BP 136/84 Pulse 90 Temp 36.9 ?C (98.5 ?F) (Tympanic) Resp 16 Wt 81.3 kg (179 lb 3.2 oz) SpO2 95% .Patient presents with: Pain, Sinus: Sinus pain and pressure, congestion and CRAIG x 8 days PAST MEDICAL HISTORY Diagnosis Date History of Martha thyroiditis History reviewed. No pertinent surgical history. ALLERGIES Bactrim [Sulfamethoxazole-Trimethoprim] MEDICATIONS levothyroxine (SYNTHROID) 100 mcg tablet TAKE 1 TABLET BY MOUTH ONCE DAILY FOR HYPOTHYROID History reviewed. No pertinent family history. Social History Tobacco Use Smoking status: Never Passive exposure: Never Smokeless tobacco: Never Review of Systems Constitutional: Negative for chills, fever and malaise/fatigue. HENT: Positive for congestion and sinus pain. Negative for ear discharge, ear pain and sore throat. Eyes: Negative for blurred vision, pain, discharge and redness. Respiratory: Negative for cough, hemoptysis, sputum production, shortness of breath, wheezing and stridor. Cardiovascular: Negative for chest pain. Gastrointestinal: Negative for abdominal pain, diarrhea, nausea and vomiting. Musculoskeletal: Negative for myalgias. Skin: Negative for itching and rash. Neurological: Positive for headaches. Negative for dizziness and tingling (.vs). Objective Physical Exam Constitutional: General: She is not in acute distress. Appearance: She is not diaphoretic. HENT: Head: Normocephalic. Jaw: No trismus, tenderness, swelling or pain on movement. Right Ear: Tympanic membrane, ear canal and external ear normal. Left Ear: Tympanic membrane, ear canal and external ear normal. Nose: Rhinorrhea present. Right Sinus: Maxillary sinus tenderness present. Left Sinus: Maxillary sinus tenderness present. Mouth/Throat: Mouth: Mucous membranes are moist. Pharynx: Oropharynx is clear. No pharyngeal swelling, oropharyngeal exudate, posterior oropharyngeal erythema or uvula swelling. Eyes: Conjunctiva/sclera: Conjunctivae normal. Pupils: Pupils are equal, round, and reactive to light. Cardiovascular: Rate and Rhythm: Normal rate and regular rhythm. Heart sounds: Normal heart sounds. Pulmonary: Effort: Pulmonary effort is normal. No tachypnea, accessory muscle usage or respiratory distress. Breath sounds: No stridor. Rales present. No wheezing or rhonchi. Abdominal: General: There is no distension. Palpations: Abdomen is soft. Tenderness: There is no abdominal tenderness. There is no guarding or rebound. Musculoskeletal: Cervical back: Normal range of motion and neck supple. No rigidity or tenderness. No pain with movement. Normal range of motion. Lymphadenopathy: Cervical: No cervical adenopathy. Skin: General: Skin is warm and dry. Neurological: Mental Status: She is alert and oriented to person, place, and time. ASSESSMENT/PLAN: 1. Acute cough - ICD9: 786.2, ICD10: R05.1 (primary diagnosis) - XR CHEST 2V FRONTAL/LAT 2. Bacterial sinusitis - ICD9: 473.9, 041.9, ICD10: J32.9, B96.89 Suspicious of bacterial sinusitis with duration of symptoms and worsening symptoms over the last 2 to 3 days. Patient will be placed on doxycycline for cough with adventitious lung sounds and maxillary sinus pressure. Chest x-ray ordered. Will return on Friday. Patient was educated on supportive therapies. Patient will follow up with primary care provider as needed. Patient was instructed to immediately proceed to emergency room for any new, worsening, or symptoms lasting longer than anticipated. The patient's clinical presentation is otherwise unremarkable at this time. Based on exam and clinical finding, the patient is stable for discharge. Plan of care was discussed with patient. Patient verbalizes understanding and agrees to plan of care. This note was generated using [employer] software. It may contain errors in wording, punctuation, or spelling. Leonel Odonnell APRN.[facility] 01-18-2023 History of Present illness Narrative Subjective HPI Nontoxic-appearing female presents urgent care chief complaint possible sinus infection. Patient states she has had sinus pressure and cough for 8 to 10 days. Has not improved cough and sinus pressure has worsened over the last few days. Denies any OTC medication use. Sick contacts similar signs symptoms at home. Denies any fever body aches chills productive cough chest pain shortness of breath pleuritic pain hemoptysis nausea vomiting abdominal pain change in bowel or bladder habits. Past medical history prescription medication use and allergies reviewed. Denies chance of . Is not breast-feeding. BP 136/84 Pulse 90 Temp 36.9 C (98.5 F) (Tympanic) Resp 16 Wt 81.3 kg (179 lb 3.2 oz) SpO2 95% .Patient presents with: Pain, Sinus: Sinus pain and pressure, congestion and CRAIG x 8 days PAST MEDICAL HISTORY Diagnosis Date History of Martha thyroiditis History reviewed. No pertinent surgical history. ALLERGIES Bactrim [Sulfamethoxazole-Trimethoprim] MEDICATIONS levothyroxine (SYNTHROID) 100 mcg tablet TAKE 1 TABLET BY MOUTH ONCE DAILY FOR HYPOTHYROID History reviewed. No pertinent family history. Social History Tobacco Use Smoking status: Never Passive exposure: Never Smokeless tobacco: Never Review of Systems Constitutional: Negative for chills, fever and malaise/fatigue. HENT: Positive for congestion and sinus pain. Negative for ear discharge, ear pain and sore throat. Eyes: Negative for blurred vision, pain, discharge and redness. Respiratory: Negative for cough, hemoptysis, sputum production, shortness of breath, wheezing and stridor. Cardiovascular: Negative for chest pain. Gastrointestinal: Negative for abdominal pain, diarrhea, nausea and vomiting. Musculoskeletal: Negative for myalgias. Skin: Negative for itching and rash. Neurological: Positive for headaches. Negative for dizziness and tingling (.vs). Objective Physical Exam Constitutional: General: She is not in acute distress. Appearance: She is not diaphoretic. HENT: Head: Normocephalic. Jaw: No trismus, tenderness, swelling or pain on movement. Right Ear: Tympanic membrane, ear canal and external ear normal. Left Ear: Tympanic membrane, ear canal and external ear normal. Nose: Rhinorrhea present. Right Sinus: Maxillary sinus tenderness present. Left Sinus: Maxillary sinus tenderness present. Mouth/Throat: Mouth: Mucous membranes are moist. Pharynx: Oropharynx is clear. No pharyngeal swelling, oropharyngeal exudate, posterior oropharyngeal erythema or uvula swelling. Eyes: Conjunctiva/sclera: Conjunctivae normal. Pupils: Pupils are equal, round, and reactive to light. Cardiovascular: Rate and Rhythm: Normal rate and regular rhythm. Heart sounds: Normal heart sounds. Pulmonary: Effort: Pulmonary effort is normal. No tachypnea, accessory muscle usage or respiratory distress. Breath sounds: No stridor. Rales present. No wheezing or rhonchi. Abdominal: General: There is no distension. Palpations: Abdomen is soft. Tenderness: There is no abdominal tenderness. There is no guarding or rebound. Musculoskeletal: Cervical back: Normal range of motion and neck supple. No rigidity or tenderness. No pain with movement. Normal range of motion. Lymphadenopathy: Cervical: No cervical adenopathy. Skin: General: Skin is warm and dry. Neurological: Mental Status: She is alert and oriented to person, place, and time. ASSESSMENT/PLAN: 1. Acute cough - ICD9: 786.2, ICD10: R05.1 (primary diagnosis) - XR CHEST 2V FRONTAL/LAT 2. Bacterial sinusitis - ICD9: 473.9, 041.9, ICD10: J32.9, B96.89 Suspicious of bacterial sinusitis with duration of symptoms and worsening symptoms over the last 2 to 3 days. Patient will be placed on doxycycline for cough with adventitious lung sounds and maxillary sinus pressure. Chest x-ray ordered. Will return on Friday. Patient was educated on supportive therapies. Patient will follow up with primary care provider as needed. Patient was instructed to immediately proceed to emergency room for any new, worsening, or symptoms lasting longer than anticipated. The patient's clinical presentation is otherwise unremarkable at this time. Based on exam and clinical finding, the patient is stable for discharge. Plan of care was discussed with patient. Patient verbalizes understanding and agrees to plan of care. This note was generated using [employer] software. It may contain errors in wording, punctuation, or spelling. Leonel Odonnell APRN.ZEKE documented in this encounter [facility] 01-15-2023 Note HNO ID: [id number] Author: Edmund Teresa MD Service: ? Author Type: Physician Type: Progress Notes Filed: 01/15/2023 8:47 AM Note Text: Patient presents with: Cough: Chest congestion, fever x 5 days HPI: Feeling sick for 5 days. Her was diagnosed a touch of pneumonia yesterday. Positive symptoms: Cough, Chest congestion, Fever, mild Nasal Congestion/Rhinorrhea, resolved body aches Negative symptoms: Chest pain, Nausea, Vomiting, Diarrhea, OTC: Mucinex, had used tylenol/ibuprofen PAST MEDICAL HISTORY Diagnosis Date History of Martha thyroiditis MEDICATIONS: Current Outpatient Medications Medication Sig levothyroxine (SYNTHROID) 100 mcg tablet TAKE 1 TABLET BY MOUTH ONCE DAILY FOR HYPOTHYROID No current facility-administered medications for this visit. ALLERGIES: ALLERGIES Allergen Reactions Bactrim [Sulfametho* Hives VITALS: BP 110/80 Pulse 80 Temp 36.9 ?C (98.4 ?F) Resp 21 Wt 80.8 kg (178 lb 3.2 oz) SpO2 99% PHYSICAL EXAM: GEN: mildly ill appearing HEENT: PERRL, EOMI, conjunctiva clear Ears: canals clear. TMs without erythema, bulge, or effusion Sinuses: non-tender frontal sinus, non-tender maxillary sinuses Throat: moist mucous membranes, no erythema, no exudate Neck: supple, no thyromegaly, no lymphadenopathy HEART: regular rate and rhythm, no murmurs LUNGS: clear to auscultation, no wheezes or crackles, no increased WOB; occasional raspy cough. ASSESSMENT/PLAN: 1. Acute cough - ICD9: 786.2, ICD10: R05.1 - suspect viral URI. COVID testing recommended. She may do one at work. - Discussed supportive care treatment with cough medicine. Follow up with worsening cough, worsening shortness of breath, increasing chest pain, or late onset fever. Edmund Teresa MD [facility] 01-15-2023 History of Present illness Narrative Patient presents with: Cough: Chest congestion, fever x 5 days HPI: Feeling sick for 5 days. Her was diagnosed a touch of pneumonia yesterday. Positive symptoms: Cough, Chest congestion, Fever, mild Nasal Congestion/Rhinorrhea, resolved body aches Negative symptoms: Chest pain, Nausea, Vomiting, Diarrhea, OTC: Mucinex, had used tylenol/ibuprofen PAST MEDICAL HISTORY Diagnosis Date History of Martha thyroiditis MEDICATIONS: Current Outpatient Medications Medication Sig levothyroxine (SYNTHROID) 100 mcg tablet TAKE 1 TABLET BY MOUTH ONCE DAILY FOR HYPOTHYROID No current facility-administered medications for this visit. ALLERGIES: ALLERGIES Allergen Reactions Bactrim [Sulfametho* Hives VITALS: BP 110/80 Pulse 80 Temp 36.9 C (98.4 F) Resp 21 Wt 80.8 kg (178 lb 3.2 oz) SpO2 99% PHYSICAL EXAM: GEN: mildly ill appearing HEENT: PERRL, EOMI, conjunctiva clear Ears: canals clear. TMs without erythema, bulge, or effusion Sinuses: non-tender frontal sinus, non-tender maxillary sinuses Throat: moist mucous membranes, no erythema, no exudate Neck: supple, no thyromegaly, no lymphadenopathy HEART: regular rate and rhythm, no murmurs LUNGS: clear to auscultation, no wheezes or crackles, no increased WOB; occasional raspy cough. ASSESSMENT/PLAN: 1. Acute cough - ICD9: 786.2, ICD10: R05.1 - suspect viral URI. COVID testing recommended. She may do one at work. - Discussed supportive care treatment with cough medicine. Follow up with worsening cough, worsening shortness of breath, increasing chest pain, or late onset fever. Edmund Teresa MD documented in this encounter [facility] 09-29-2022 Note . MICRO - Microbiology PROCEDURE: Urine Culture [*1] SOURCE: Urine BODY SITE: COLLECTED DATE/TIME: 09/26/2022 19:36 EST RECEIVED DATE/TIME: 09/27/2022 15:27 EST START DATE/TIME: 09/27/2022 15:28 EST FREE TEXT SOURCE: FINAL REPORTS Final Report [] Verified Date/Time/Personnel: 09/29/2022 09:21 EST <10,000 cfu/ml. No Significant growth. Sensitivity not indicated. PRELIMINARY REPORTS Preliminary Report [] Verified Date/Time/Personnel: 09/28/2022 10:21 EST No growth to date Performing Locations *1: This test was performed at: [facility], [address] [place] [address], [id number] , [facility] ([place]) 09-26-2022 Hospital Discharge instructions Patient Education 09/26/2022 20:53:36 Chest Pain, Uncertain Cause Uncertain Causes of Chest Pain Chest pain can happen for a number of reasons. Sometimes the cause can't be determined. If your condition does not seem serious, and your pain does not appear to be coming from your heart, your healthcare provider may recommend watching it closely. Sometimes the signs of a serious problem take more time to appear. Many problems not related to your heart can cause chest pain. These include: Musculoskeletal. Costochondritis is an inflammation of the tissues around the ribs that can occur from trauma or overuse injuries, or a strain of the muscles of the chest wall Respiratory. Pneumonia, collapsed lung (pneumothorax), or inflammation of the lining of the chest and lungs (pleurisy) Gastrointestinal. Esophageal reflux, heartburn, ulcers, or gallbladder disease Anxiety and panic disorders Nerve compression and inflammation Rare miscellaneous problems such as aortic aneurysm (a swelling of the large artery coming out of the heart) or pulmonary embolism (a blood clot in the lungs) Home care After your visit, follow these recommendations: Rest today and avoid strenuous activity. Take any prescribed medicine as directed. Be aware of any recurrent chest pain and notice any changes Follow-up care Follow up with your healthcare provider if you do not start to feel better within 24 hours, or as advised. Call 911 Call 911 if any of these occur: A change in the type of pain: if it feels different, becomes more severe, lasts longer, or begins to spread into your shoulder, arm, neck, jaw or back Shortness of breath or increased pain with breathing Weakness, dizziness, or fainting Rapid heart beat Crushing sensation in your chest When to seek medical advice Call your healthcare provider right away if any of the following occur: Cough with dark colored sputum (phlegm) or blood Fever of 100.4 F (38 C) or higher, or as directed by your healthcare provider Swelling, pain or redness in one leg [id number] [employer]. [address] [place] [address], [place] [address]. All rights reserved. This information is not intended as a substitute for professional medical care. Always follow your healthcare professional's instructions. 09/26/2022 20:53:33 Abdominal Pain Abdominal Pain Abdominal pain is pain in the stomach or belly area. Everyone has this pain from time to time. In many cases it goes away on its own. But abdominal pain can sometimes be due to a serious problem, such as appendicitis. So it s important to know when to get help. Causes of abdominal pain There are many possible causes of abdominal pain. Common causes in adults include: Constipation, diarrhea, or gas Stomach acid flowing back up into the esophagus (acid reflux or heartburn) Severe acid reflux, called GERD (gastroesophageal reflux disease) A sore in the lining of the stomach or small intestine (peptic ulcer) Inflammation of the gallbladder, liver, or pancreas Gallstones or kidney stones Appendicitis Intestinal blockage An internal organ pushing through a muscle or other tissue (hernia) Urinary tract infections In women, menstrual cramps, fibroids, ovarian cysts, pelvic inflammatory disease, or endometriosis Inflammation or infection of the intestines, including Crohn's disease and ulcerative colitis Irritable bowel syndrome Diagnosing the cause of abdominal pain Your healthcare provider will give you a physical exam help find the cause of your pain. If needed, you will have tests. Belly pain has many possible causes. So it can be hard to find the reason for your pain. Giving details about your pain can help. Tell your provider where and when you feel the pain, and what makes it better or worse. Also let your provider know if you have other symptoms such as: Fever Tiredness Upset stomach (nausea) Vomiting Changes in bathroom habits Blood in the stool or black, tarry stool Weight loss that you can't explain (involuntary weight loss?) Also report any family history of stomach or intestinal problems, or cancers. Tell your provider about all your alcohol use and drug use. Tell your provider about all medicines you use, including herbs, vitamins, and supplements. Treating abdominal pain Some causes of pain need emergency medical treatment right away. These include appendicitis or a bowel blockage. Other problems can be treated with rest, fluids, or medicines. Your healthcare provider can give you specific instructions for treatment or self-care based on what is causing your pain. If you have vomiting or diarrhea, sip water or other clear fluids. When you are ready to eat solid foods again, start with small amounts of tgpq-sx-tpgjcy, low-fat foods. These include apple sauce, toast, or crackers. When to get medical care Call 911 or go to the hospital right away if you: Can t pass stool and are vomiting Are vomiting blood or have bloody diarrhea or black, tarry diarrhea Have chest, neck, or shoulder pain Feel like you might pass out Have pain in your shoulder blades with nausea Have sudden, severe belly pain Have new, severe pain unlike any you have felt before Have a belly that is rigid, hard, and hurts to touch Call your healthcare provider if you have: Pain for more than 5 days Bloating for more than 2 days Diarrhea for more than 5 days A fever of 100.4 F (38 C) or higher, or as directed by your healthcare provider Pain that gets worse Weight loss for no reason Continued lack of appetite Blood in your stool How to prevent abdominal pain Here are some tips to help prevent abdominal pain: Eat smaller amounts of food at each meal. Don't eat greasy, fried, or other high-fat foods. Don't eat foods that give you gas. Exercise regularly. Drink plenty of fluids. To help prevent GERD symptoms: Quit smoking. Reduce alcohol and foods that increase stomach acid. Don't use aspirin or gjgg-rkn-rfhtpsi pain and fever medicines, if possible. This includes nonsteroidal anti-inflammatory drugs (NSAIDs). Lose excess weight. Finish eating at least 2 hours before you go to bed or lie down. Raise the head of your bed. [id number] [employer]. [address] [place] [address]. All rights reserved. This information is not intended as a substitute for professional medical care. Always follow your healthcare professional's instructions. Follow Up Care 09/26/2022 18:02:28 With:Go to emergency room if symptoms worsen Address:Unknown When:2-4 days With:NISHA ORTEGA MD Address: [address] [place] [phone] When:2-4 days [facility] 09-26-2022 Emergency department Discharge summary Discharge Instructions Thank you for allowing [facility] to assist you with your healthcare needs. The following is important discharge information regarding your hospital visit. Diagnosis from Today's Visit Abdominal pain Chest pain Epigastric Pain What to Do Next Instructions from Your Care Team Follow-up with your primary care provider. Return the emergency department if experience worsening symptoms, inability to eat or drink, difficulty breathing, or any other care concern. If continued episodes of pain may benefit from right upper quadrant ultrasound. No qualifying data available. Post Acute Orders No qualifying data available. You Need to Schedule the Following Appointments Follow Up with Go to emergency room if symptoms worsen When Within 2-4 days Follow Up with NISHA ORTEGA MD When Within 2-4 days Where: [address] [place] [phone] Allergies Bactrim Medications Please ask your primary doctor or pharmacist before taking any other medication not listed, including over the counter drugs, herbal medications, vitamins and or supplements as they may interact with your home medications. Please take this list to your next doctor s visit. Bring all medications you take, including over the counter medications, herbals and other supplements with you to your doctor s visit. Patients and families are reminded to discard old lists and to update any records with all medication providers or retail pharmacies. Education Materials Uncertain Causes of Chest Pain Chest pain can happen for a number of reasons. Sometimes the cause can't be determined. If your condition does not seem serious, and your pain does not appear to be coming from your heart, your healthcare provider may recommend watching it closely. Sometimes the signs of a serious problem take more time to appear. Many problems not related to your heart can cause chest pain. These include: Musculoskeletal. Costochondritis is an inflammation of the tissues around the ribs that can occur from trauma or overuse injuries, or a strain of the muscles of the chest wall Respiratory. Pneumonia, collapsed lung (pneumothorax), or inflammation of the lining of the chest and lungs (pleurisy) Gastrointestinal. Esophageal reflux, heartburn, ulcers, or gallbladder disease Anxiety and panic disorders Nerve compression and inflammation Rare miscellaneous problems such as aortic aneurysm (a swelling of the large artery coming out of the heart) or pulmonary embolism (a blood clot in the lungs) Home care After your visit, follow these recommendations: Rest today and avoid strenuous activity. Take any prescribed medicine as directed. Be aware of any recurrent chest pain and notice any changes Follow-up care Follow up with your healthcare provider if you do not start to feel better within 24 hours, or as advised. Call 911 Call 911 if any of these occur: A change in the type of pain: if it feels different, becomes more severe, lasts longer, or begins to spread into your shoulder, arm, neck, jaw or back Shortness of breath or increased pain with breathing Weakness, dizziness, or fainting Rapid heart beat Crushing sensation in your chest When to seek medical advice Call your healthcare provider right away if any of the following occur: Cough with dark colored sputum (phlegm) or blood Fever of 100.4 F (38 C) or higher, or as directed by your healthcare provider Swelling, pain or redness in one leg [id number] [employer]. [address] [place] [address]. All rights reserved. This information is not intended as a substitute for professional medical care. Always follow your healthcare professional's instructions. Abdominal Pain Abdominal pain is pain in the stomach or belly area. Everyone has this pain from time to time. In many cases it goes away on its own. But abdominal pain can sometimes be due to a serious problem, such as appendicitis. So it s important to know when to get help. Causes of abdominal pain There are many possible causes of abdominal pain. Common causes in adults include: Constipation, diarrhea, or gas Stomach acid flowing back up into the esophagus (acid reflux or heartburn) Severe acid reflux, called GERD (gastroesophageal reflux disease) A sore in the lining of the stomach or small intestine (peptic ulcer) Inflammation of the gallbladder, liver, or pancreas Gallstones or kidney stones Appendicitis Intestinal blockage An internal organ pushing through a muscle or other tissue (hernia) Urinary tract infections In women, menstrual cramps, fibroids, ovarian cysts, pelvic inflammatory disease, or endometriosis Inflammation or infection of the intestines, including Crohn's disease and ulcerative colitis Irritable bowel syndrome Diagnosing the cause of abdominal pain Your healthcare provider will give you a physical exam help find the cause of your pain. If needed, you will have tests. Belly pain has many possible causes. So it can be hard to find the reason for your pain. Giving details about your pain can help. Tell your provider where and when you feel the pain, and what makes it better or worse. Also let your provider know if you have other symptoms such as: Fever Tiredness Upset stomach (nausea) Vomiting Changes in bathroom habits Blood in the stool or black, tarry stool Weight loss that you can't explain (involuntary weight loss?) Also report any family history of stomach or intestinal problems, or cancers. Tell your provider about all your alcohol use and drug use. Tell your provider about all medicines you use, including herbs, vitamins, and supplements. Treating abdominal pain Some causes of pain need emergency medical treatment right away. These include appendicitis or a bowel blockage. Other problems can be treated with rest, fluids, or medicines. Your healthcare provider can give you specific instructions for treatment or self-care based on what is causing your pain. If you have vomiting or diarrhea, sip water or other clear fluids. When you are ready to eat solid foods again, start with small amounts of gdku-nw-ojhahw, low-fat foods. These include apple sauce, toast, or crackers. When to get medical care Call 911 or go to the hospital right away if you: Can t pass stool and are vomiting Are vomiting blood or have bloody diarrhea or black, tarry diarrhea Have chest, neck, or shoulder pain Feel like you might pass out Have pain in your shoulder blades with nausea Have sudden, severe belly pain Have new, severe pain unlike any you have felt before Have a belly that is rigid, hard, and hurts to touch Call your healthcare provider if you have: Pain for more than 5 days Bloating for more than 2 days Diarrhea for more than 5 days A fever of 100.4 F (38 C) or higher, or as directed by your healthcare provider Pain that gets worse Weight loss for no reason Continued lack of appetite Blood in your stool How to prevent abdominal pain Here are some tips to help prevent abdominal pain: Eat smaller amounts of food at each meal. Don't eat greasy, fried, or other high-fat foods. Don't eat foods that give you gas. Exercise regularly. Drink plenty of fluids. To help prevent GERD symptoms: Quit smoking. Reduce alcohol and foods that increase stomach acid. Don't use aspirin or ylvy-dai-udhgyca pain and fever medicines, if possible. This includes nonsteroidal anti-inflammatory drugs (NSAIDs). Lose excess weight. Finish eating at least 2 hours before you go to bed or lie down. Raise the head of your bed. [id number] [employer]. [address] [place] [address], [place] [address]. All rights reserved. This information is not intended as a substitute for professional medical care. Always follow your healthcare professional's instructions. Additional Information VACCINATE! IT SAVES LIVES! Members of the community who have not yet received the COVID-19 vaccine and would like to receive it can visit one of [facility] vaccine clinics. There are many vaccine clinic locations within the [facility]. For locations and available times, please visit [email or web address]. It is important to note that some COVID mobile vaccine clinics are held outdoors and may be canceled in rainy or stormy conditions. To learn more about pediatric vaccinations (ages 5-11), we invite you to visit the [facility] webpage. [email or web address] [email or web address] [email or web address] To learn more about the COVID-19 vaccine, we invite you to visit the [facility] website for a list of frequently asked questions. [email or web address] [facility] Patient Portal Access Instructions: Stay connected with your healthcare team and access your personal medical information anytime with the [facility] Patient Portal. If you would like a full copy of your medical records please contact the [facility] Medical Records Department Friday through Friday between 8a.m. and 4:30p.m. Please follow the directions below to access the portal: 1.Access the email account you provided upon registration to the hospital.2.Look for an invitation email from [facility].3.Open the email and access the invitation link: Accept Invitation to [facility]4.Fill in the required walsh to create your account. Sign into [email or web address] with your username and password that you created in the above steps to stay up to date. You can then view a summary of results, a summary of your visits, and the ability to download your summaries to your computer or send the information securely to a physician. Remember that your healthcare information is confidential, so carefully consider who you will allow to register on the [facility] Patient Portal for access to your information. You can also access the [facility] Patient Portal on the [employer]aire. Simply click on Health Records under Health Data and then click on the [facility] logo. HOW TO SAFELY DISPOSE OF PRESCRIPTION MEDICATIONS Please use one of the following methods to safely dispose of your unused medications. 1.Use a drug disposal kit: the drug disposal pouch allows you to safely discard your old and unused drugs. Ask your nurse to give you one when you are discharged.2.Visit a local take-back location: Many local pharmacies and police departments have programs that collect old and unwanted prescription drugs. Call your local pharmacy or go to http://[employer].Ideacentric/0Q0Xh8f to find one close to you.3.Make use of household items: Use cat litter or old coffee grounds to dispose medications if other options are not available. Mix your drugs with these household products, seal them in an airtight container and throw it into the garbage. Call [facility]: [phone] to be sure your drugs can be disposed of in this way. Some medicines may require a different approach.4.Never flush your medications down the toilet. IF YOU HAVE BEEN PRESCRIBED AN OPIOIDS FOR PAIN If you have been prescribed an opioid (such as hydrocodone, oxycodone or morphine), it is critical to understand the possible side effects and risks of opioid pain medications. Even when taken as directed, opioids can have several side effects including: Tolerance, meaning you might need to take more of a medication for the same pain relief. Nausea, vomiting and/or constipation. Sleepiness, dizziness, dry mouth, confusion, depression or itching. Physical dependence, meaning you have withdrawal symptoms when a medication is stopped ? this can develop within a few days. KNOW YOUR RESPONSIBILITIES It is important to know exactly how much and how often to take the opioid pain medications you are prescribed. Never take opioids in higher amounts or more often than prescribed. Do not combine opioids with alcohol or other drugs that cause drowsiness, such as benzodiazepines, also known as benzos, including diazepam and alprazolam, muscle relaxants or sleep aids. Never sell or share prescription opioids. This is illegal. Store opioids in a secure place and out of reach of others (including children, family, friends and visitors). The last page(s) of this document has been signed and retained as a CHART COPY Signatures Patient Education Materials Chest Pain, Uncertain Cause Abdominal Pain Medication Leaflets My discharge plan and instructions have been reviewed and explained to me and I,JAYLYN CONTRERAS understand my current condition and have read and understand these discharge instructions. I have received a written copy of the plan/instructions. If I have questions, I am aware that I should contact my doctor. 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 09-26-2022 Note ORIGINAL EXAMINATION: ONE XRAY VIEW OF THE CHEST 09/26/2022 6:45 pm COMPARISON: None. HISTORY: ORDERING SYSTEM PROVIDED HISTORY: Reason for Exam: chest pain FINDINGS: The cardiomediastinal silhouette is normal. There is no focal consolidation, pleural effusion, vascular congestion, or pneumothorax. Monitoring leads overlie the image. IMPRESSION: No acute radiographic cardiopulmonary findings. Interpreted by: Tanya Villalobos MD Preliminary Report By: Tanya Villalobos MD Electronically signed By Tanya Villalobos MD Dictated Date: 09/26/2022 6:59:21 PM Prelim Date: 09/26/2022 6:59:46 PM Sign Date: 09/26/2022 6:59:46 PM Ordering Provider: [facility] 09-26-2022 Note ORIGINAL EXAMINATION: ONE XRAY VIEW OF THE CHEST 09/26/2022 6:45 pm COMPARISON: None. HISTORY: ORDERING SYSTEM PROVIDED HISTORY: Reason for Exam: chest pain FINDINGS: The cardiomediastinal silhouette is normal. There is no focal consolidation, pleural effusion, vascular congestion, or pneumothorax. Monitoring leads overlie the image. IMPRESSION: No acute radiographic cardiopulmonary findings. Interpreted by: Tanya Villalobos MD Preliminary Report By: Tanya Villalobos MD Electronically signed By Tanya Villalobos MD Dictated Date: 09/26/2022 6:59:21 PM Prelim Date: 09/26/2022 6:59:46 PM Sign Date: 09/26/2022 6:59:46 PM Ordering Provider: [facility] 09-26-2022 Evaluation + Plan note Diagnostic Tests PendingUrine Culture 09/26/22 [facility]- Primary Bacterial sinusitis Unspecified sinusitis (chronic) [facility] No data available for this section [facility] Note* ARGENTINA HAUSER DO: SIGN, VERIFY Event Display: EKG [ED AOH] - CV Authored Date: [id number] 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 female. Patient here for annual checkup and follow-up on her weight loss. Patient is been having issues with her hormone. Harting almost every day for the last 1 month patient has family history of Martha's thyroiditis and thyroid issues wants her thyroid checked. Does complain of cold intolerance and fatigue inability to lose weight despite of dieting and exercise. Lost some weight but not as much asshe expected but with her dieting. Denies any other complaint. The following portions of the patient's history were reviewed and updated as appropriate: allergies, current medications, past family history, past medical history, past social history, past surgicalhistory, and problem list. Review of Systems Constitutional: Positive for appetite change and fatigue. Negative for activity change, chills, diaphoresis, fever and unexpected weight change. HENT: Negative for congestion, mouth sores, rhinorrhea, trouble swallowing and voice change. Eyes: Negative for visual disturbance. Respiratory: Negative for apnea, cough, choking, chest tightness, shortness of breath, wheezing andstridor. Cardiovascular: Negative for chest pain, palpitations and leg swelling. Gastrointestinal: Negative for abdominal pain, constipation, diarrhea and nausea. Genitourinary: Positive for menstrual problem and vaginal bleeding. Negative for difficulty urinating, pelvic pain and vaginal pain. Musculoskeletal: Negative for arthralgias. Skin: Negative for rash. Neurological: Negative for weakness. Psychiatric/Behavioral: The patient is not nervous/anxious. Patient's Medications New Prescriptions No medications on file Previous Medications No medications on file Modified Medications Modified Medication Previous Medication PHENTERMINE (ADIPEX-P) 37.5 MG TABLET phentermine (ADIPEX-P) 37.5 mg tablet Take 1 (one) tablet (37.5 mg total) by mouth daily . Take 37.5 mg by mouth daily . Discontinued Medications No medications on file Objective Physical Exam Constitutional: Appearance: Normal appearance. She is normal weight. HENT: Head: Normocephalic. Right Ear: Tympanic membrane, ear canal and external ear normal. Left Ear: Tympanic membrane, ear canal and external ear normal. Nose: Nose normal. Mouth/Throat: Mouth: Mucous membranes are moist. Pharynx: Oropharynx is clear. Eyes: Extraocular Movements: Extraocular movements intact. Conjunctiva/sclera: Conjunctivae normal. Pupils: Pupils are equal, round, and reactive to light. Neck: Musculoskeletal: Neck supple. Cardiovascular: Rate and Rhythm: Normal rate. Pulses: Normal pulses. Heart sounds: Normal heart sounds. Pulmonary: Effort: Pulmonary effort is normal. Breath sounds: Normal breath sounds. Abdominal: General: Abdomen is flat. Bowel sounds are normal. Musculoskeletal: Normal range of motion. Skin: General: Skin is warm. Neurological: General: No focal deficit present. Mental Status: She is alert. Psychiatric: Mood and Affect: Mood normal. Behavior: Behavior normal. Thought Content: Thought content normal. Judgment: Judgment normal. Assessment/Plan: Problem List Items Addressed This Visit Other Obesity Relevant Medications phentermine (ADIPEX-P) 37.5 mg tablet Menstrual irregularity History of Martha's thyroiditis and family and other symptoms of fatigue will check thyroid. Family history of Martha thyroiditis Relevant Orders Thyroid peroxidase antibody (TPO) TSH with Reflex Free T4 Other Visit Diagnoses Well adult health check - Primary Relevant Orders CBC and Differential Comprehensive Metabolic Panel Lipid Panel Tash Agee MD documented in this encounter* Albert You MD - 05/22/2020 1:18 PM EDT Patient has significant difficulty in losing weight and has done exercise diet and requesting some medical help prescription given documented in this encounter Assessments Diagnosis Well adult health check Unspecified general medical examination Obesity, unspecified classification, unspecified obesity type, unspecified whether serious comorbidity present Menstrual irregularity Irregular menstrual cycle Family history of Martha thyroiditis Diagnosis Obesity, unspecified classification, unspecified obesity type, unspecified whether serious comorbidity present Additional Source Comments INFORMATION SOURCE (unrecogn ized section and content) DATE CREATED AUTHOR AUTHOR'S ORGANIZ ATION 05/11/2018 [facility] DATE CREATED AUTHOR AUTHOR'S ORGANIZ ATION 04/09/2020 [facility] DATE CREATED AUTHOR AUTHOR'S ORGANIZ ATION 05/01/2020 [facility] DATE CREATED AUTHOR AUTHOR'S ORGANIZ ATION 10/01/2022 [facility] ([place] DATE CREATED AUTHOR AUTHOR'S ORGANIZ ATION 01/21/2023 [facility] Reason for Visit (unrecogniz ed section and content) Reason Comments Follow-up Reason Comments Cough Chest congestion, fe kenneth x 5 days Reason Comments Pain, Sinus Sinus pain and press ure, congestion and CRAIG x 8 days Assessment & Plan Note - Tash Agee MD - 03/31/2020 7:11 PM EDTAssessment & Plan Note - Albert You MD - 05/22/2020 1:19 PM EDT Miscellaneous Notes (unrecog nized section and content) Associated Problem(s): Menstrual irregularity History of Martha's thyroiditis and family and other symptoms of fatigue will check thyroid. documented in this encounter Associated Problem(s): Obesity And is doing difficulty to lose weight with diet and exercise requesting assistance from using Adipex documented in this encounter Care Team (unrecognized sect ion and content) Care Team Personnel Name: NISHA ORTEGA MD Member Role: Primary Care Physician Address: Address: [address] [place] [address]- Name: ARGENTINA HAUSER DO Position: ED Physician Member Role: ED Physician Address: Address: [address] [place] [address]- Name: Alla Neves RN Position: ED RN Member Role: ED RN Source Comments (unrecognize d section and content) In the event this informatio n is protected by the Federal Confidentiality of Alcohol and Drug Abuse Patient Records regulations: The Federal rules restrict any use of the information to criminally investigate or prosecute any alcohol or drug abuse patient.[facility] the event this information is protected by the Federal Confidentiality of Alcohol and Drug Abuse Patient Records regulations: The Federal rules restrict any use of the information to criminally investigate or prosecute any alcohol or drug abuse patient.[facility] FOR RECORDS PERTAINING TO PATIENTS WHO ARE OR HAVE BEEN ENROLLED IN A CHEMICAL DEPENDENCY/SUBSTANCEABUSE PROGRAM, SOME INFORMATION MAY BE OMITTED. This clinical summary was aggregated from multiple sources. Caution should be exercised in using it in the provision of clinical care. This summary normalizes information from multiple sources, and as a consequence, information in this document may materially change the coding, format and clinical context of patient data. In addition, data may be omitted in some cases. CLINICAL DECISIONS SHOULD BE BASED ON THE PRIMARY CLINICAL RECORDS. [facility] [employer] [facility]. provides no warranty or guarantee of the accuracy or completeness of information in this document.
[2023-12-13 12:51] LABS: Ferritin 51 ng/mL (8-252); Free T3 2.5 pg/mL (2.18-3.98); Iron 90 ug/dL (50-170); Iron Binding Capacity,Total 336 ug/dL (250-450); T4 Free Direct 1.11 ng/dL (0.76-1.46); Thyroid Stim Hormone (TSH) 2.74 uIU/mL (0.358-3.74)
[2023-12-15 09:00] LABS: T3 Total - Triiodothyronine 1.11 ng/mL (0.6-1.81)
== END | disposition home or self-care (01) ==
LOC: LAB 11:25
PROVIDERS: PCP Internal Medicine; Referring Provider Obstetrics & Gynecology; Visit Provider Obstetrics & Gynecology
DX: R94.6 Abnormal results of thyroid function studies (principal); N93.9 Abnormal uterine and vaginal bleeding, unspecified
CPT/HCPCS: 36415; 82728; 83540; 83550; 84439; 84443; 84480; 84481

== ENCOUNTER → 2024-06-24 | Outpatient (CLI) | payer OTHER, SELFPAY ==
[2024-06-24 12:26] LABS: T4 Free Direct 0.93 ng/dL (0.76-1.46); T4 Total, Thyroxin 7.9 ug/dL (4.8-13.9); Thyroid Stim Hormone (TSH) 0.55 uIU/mL (0.358-3.74)
[2024-06-24 12:28] LABS: T3 Total - Triiodothyronine 1.25 ng/mL (0.6-1.81)
[2024-06-29 12:00] LABS: T3 Reverse 18.4 ng/dL (9.2-24.1)
== END | disposition home or self-care (01) ==
LOC: BIMLAB 09:05
PROVIDERS: PCP Internal Medicine; Referring Provider Nurse Practitioner; Visit Provider Nurse Practitioner
DX: E06.3 Autoimmune thyroiditis (principal); E03.8 Other specified hypothyroidism
CPT/HCPCS: 36415; 84436; 84439; 84443; 84480; 84481; 84482

== ENCOUNTER → 2024-09-09 | Outpatient (CLI) | payer OTHER, SELFPAY ==
[2024-09-09 16:37] LABS: Absolute Lymphocyte Count 2.91 X10^3/uL (0.83-4.51); Absolute Neutrophil Count 3.3 X10^3/uL (2.0-7.7); Basophil# 0.07 X10^3/uL; Eosinophil# 0.15 X10^3/uL; Eosinophils% 2.2 % (0-5); Hemoglobin 13.1 g/dL (12.0-15.0); Lymphocyte # 2.91 X10^3/ul (0.83-4.51); Lymphocyte % 42.3 % (19-41); Mean Corpuscular Volume 87.6 fL (81-99); Mean Platelet Vol. 12.1 fl (6.2-12.0); Monocyte# 0.48 X10^3/uL; NRBC Flagged by Analyzer 0 % (0-5); Neutrophil # 3.26 X10^3/uL (2.7-7.7); Neutrophil % 47.4 % (47-70); Platelet Count 271 K/mm3 (150-450); RBC Distribution Width CV 12.7 % (11.6-14.6); RBC Distribution Width SD 40.9 fl (35.1-43.9); Red Blood Count 4.68 M/mm3 (4.2-5.4); White Blood Count 6.9 K/mm3 (4.4-11.0)
[2024-09-09 17:01] LABS: ALB/GLOB Ratio 1.1 RATIO (0.9-2.4); AST(SGOT) 11 U/L (15-37); Alanine Aminotransfer ALT/SGPT 22 U/L (13-56); Albumin, Serum 4.1 g/dL (3.2-5.0); Alkaline Phosphatase 74 U/L (45-117); Anion Gap 5 (5-15); BUN 10 mg/dL (7-18); BUN/Creat Ratio 12.5 RATIO (10-20); Calcium,Total 9.3 mg/dL (8.5-10.1); Chloride 108 mmol/L (98-107); Cholesterol 153 mg/dL (200); EST Glomerular Filtration Rate 84 mL/min (>60); Est Glom Filt Rate - Afr Amer 102 mL/min (>60); Globulin 3.7 g/dL (2.2-4.2); Glucose 88 mg/dL (74-106); High Density Lipoprotein 37 mg/dL; Potassium 3.9 mmol/L (3.5-5.1); Protein, Total 7.8 g/dL (6.4-8.2); Sodium Level 139 mmol/L (136-145); Thyroid Stim Hormone (TSH) 0.534 uIU/mL (0.358-3.740); Triglycerides 84 mg/dL; Very Low Density Lipoprotein 17 mg/dL (5-40)
== END | disposition home or self-care (01) ==
LOC: BIMLAB 14:41
PROVIDERS: PCP Internal Medicine; Referring Provider Internal Medicine; Visit Provider Internal Medicine
DX: Z00.00 Encounter for general adult medical examination without abnormal findings (principal); E03.9 Hypothyroidism, unspecified
CPT/HCPCS: 36415; 80053; 80061; 84443; 85025

== ENCOUNTER → 2024-09-30 | Outpatient (CLI) | payer OTHER, SELFPAY ==
--- NOTE | 2024-09-30 07:16 | BI_ITS ---
MAMMOGRAPHY - BILATERAL SCREENING REASON FOR EXAM: Female, 39 years old. Routine annual screening examination. PERTINENT HISTORY: Non-contributory. TECHNIQUE: Digital bilateral breast amelia (3D mammographic acquisition) in the CC and MLO projections. 2-D mediolateral oblique (MLO) and craniocaudad (CC) views of both breasts were obtained. CAD: Full Field Digital Mammography with Computer Added Detection was performed. COMPARISON: None. Baseline examination. FINDINGS: Breast Composition: The breasts are heterogeneously dense, which may obscure small masses. There are no dominant masses or suspicious calcifications. Small bilateral fat containing axillary lymph nodes. No other significant abnormalities are identified. BI/SCRN MAMM (CAD)W/AMELIA BILAT IMPRESSION: Negative screening mammogram. Yearly followup mammogram recommended. (A) ASSESSMENT CATEGORY: BIRADS Category 2: Benign. A letter regarding these results will be sent to the patient by the facility within 30 days. Approximately 10% of breast cancers are not detected by mammography. A normal mammogram should not delay biopsy of a clinically suspicious abnormality. [id number] Electronically Signed: Miguel Angel Shepherd MD at 8:39 EST ,
== END | disposition home or self-care (01) ==
LOC: OPBI 07:11
PROVIDERS: PCP Internal Medicine; Referring Provider Internal Medicine; Visit Provider Internal Medicine
DX: Z12.31 Encounter for screening mammogram for malignant neoplasm of breast (principal)
CPT/HCPCS: 77063; 77067

== ENCOUNTER → 2024-12-03 | Outpatient (CLI) | payer OTHER, SELFPAY ==
[2024-12-03] MEDS: Lidocaine 2% (5ml sdv) 5 ML VIAL.MPF INFILT (10:00)
[2024-12-03] MEDS: Gadoterate Meglumine Diluted 10 ML, Iopamidol 5 ML, Lidocaine 1% (20 ml mdv) 5 ML, Epin... INTRAARTIC (10:03)
[2024-12-03] MEDS: Iopamidol 10 ML in Syringe 1 EACH 600 ML INTRAARTIC (10:03)
--- NOTE | 2024-12-03 10:45 | MRI_ITS ---
STUDY: MRI ARTHROGRAM OF THE RIGHT HIP REASON FOR EXAM: Female, 39 years old. Right hip pain - sharp shooting consistently x 6 months. TECHNIQUE: 10 cc of dilute Clariscan contrast was injected into the right hip joint. MRI was obtained in all 3 orthogonal planes. COMPARISON: None. FINDINGS: There is a tear of the right anterior acetabular labrum (sagittal T1 series 5 images 9-11), with an adjacent 5 mm paralabral cyst (sagittal T2 series 6 image 11; coronal T2 series 4 image 16). Normal hip joint without articular joint space narrowing. Normal acetabulum. Normal femoral head. Normal femoral neck and intratrochanteric region. Normal gluteus minimus, medius and iliopsoas tendons and distal insertions. There is no trochanteric, iliopsoas or iliopectineal bursitis. Normal superior and inferior pubic rami. Normal pubic symphysis. Normal ischial tuberosity. Normal origin of the hamstring tendons. Normal visualized iliac wing, sacroiliac joint, and sacral ala. Normal visualized soft tissue structures of the pelvis. MRI/Lower Ext/Jt Only/W Contrast IMPRESSION: Tear of the right anterior acetabular labrum, with an adjacent 5 mm paralabral cyst. Electronically Signed: Darren Singh MD at 13:35 EST ,
--- NOTE | 2024-12-03 11:32 | OP.PCM_ITS ---
[facility] Rad[facility] Rad Xray Procedures: 83987 Arthrogram Hip and [id number] Fluoroscopic guidance for needle placement Operative Report (Standard) Operative Information Date of Procedure: 12/03/24 Pre-Operative Diagnosis: right hip pain Post-Operative Diagnosis: right hip pain Surgery/Procedure Performed: right hip arthrogram store grocery merchandiser: No Type of Anesthesia: Local Procedure Start Time: 09:45 Procedure Stop Time: 09:57 Select all DRAINS/GRAFTS/IMPLANTS that apply: None Estimated Blood Loss: minimal Specimen collected: No Description of surgery: PROCEDURE: Arthrogram-right hip ORDERING PROVIDER: Dr. Javier INDICATION: Female, 39 years old. Right hip pain. PROVIDER: Sandra Bright APRN-RESTORATION TECHNICIAN FLUOROSCOPY TIME (if supplied): 0 minutes/18 seconds. 4.0 mGy CONSENT: The procedure as well as the benefits and possible complications including bleeding and infection were explained to the patient. Informed consent was obtained. TECHNIQUE: The patient was positioned supine. The overlying skin was prepped and draped in the usual sterile fashion. Following injection of local anesthetic with 2% lidocaine, a 22-gauge spinal needle was positioned under radiographic fluoroscopic localization. Approximately 2 cc of Isovue 300 instilled for localization purposes. Following this, 10 cc of arthrogram contrast (gadoterate, iopamidol, lidocaine, and epinephrine), compounded by pharmacy, was injected. All elements of maximal sterile barrier technique followed. Patient tolerated procedure well. IMPRESSION: Successful fluoroscopic guided right hip arthrogram. Surgical Findings: right hip arthrogram Complications Complications: No
== END | disposition home or self-care (01) ==
LOC: RAD 09:22
PROVIDERS: PCP Internal Medicine; Referring Provider Specialist; Visit Provider Specialist
DX: M25.551 Pain in right hip (principal); M25.851 Other specified joint disorders, right hip
CPT/HCPCS: 27093; 73525; 73722; Q9967

== ENCOUNTER → 2025-08-12 | Outpatient (CLI) | payer OTHER, SELFPAY ==
[2025-08-12 09:03] LABS: Hematocrit 39.5 % (37-47); Hemoglobin 13.2 g/dL (12.0-15.0); Immature Granulocytes Count 0.010 X10^3/uL (0.0-0.0); Mean Corp Hgb Conc 33.4 g/dL (32-36); Mean Corpuscular Volume 85.9 fL (81-99); Mean Platelet Vol. 11.3 fl (6.2-12.0); NRBC Flagged by Analyzer 0 % (0-5); Platelet Count 269 K/mm3 (150-450); RBC Distribution Width CV 12.2 % (11.6-14.6); RBC Distribution Width SD 38.2 fl (35.1-43.9); Red Blood Count 4.60 M/mm3 (4.2-5.4); White Blood Count 5.5 K/mm3 (4.4-11.0)
[2025-08-12 10:00] LABS: AST(SGOT) 14 U/L (<=31); Alanine Aminotransfer ALT/SGPT 13 U/L (<=34); Albumin, Serum 4.4 g/dL (3.5-5.0); Alkaline Phosphatase 54 U/L (35-104); Anion Gap 9 (5-15); BUN 10 mg/dL (4-19); BUN/Creat Ratio 12.5 RATIO (10-20); Calcium,Total 8.9 mg/dL (7.6-11.0); Carbon Dioxide 24.2 mmol/L (21.0-32.0); Chloride 106 mmol/L (98-108); Cholesterol 156 mg/dL (<=200); Globulin 2.6 g/dL (2.2-4.2); Glucose 80 mg/dL (70-99); Low Density Lipoprotein Calc. 103 mg/dL; Potassium 4.3 mmol/L (3.3-5.1); Triglycerides 64 mg/dL; Very Low Density Lipoprotein 13 mg/dL (5-40); cholesterol:hdl ratio screen 3.86
== END | disposition home or self-care (01) ==
LOC: LAB 08:43
PROVIDERS: PCP Internal Medicine; Referring Provider Internal Medicine; Visit Provider Internal Medicine
DX: Z00.00 Encounter for general adult medical examination without abnormal findings (principal); E03.9 Hypothyroidism, unspecified
CPT/HCPCS: 36415; 80053; 80061; 84443; 85025

== ENCOUNTER → 2025-11-03 | Outpatient (CLI) | payer OTHER, SELFPAY ==
--- NOTE | 2025-11-03 08:00 | BI_ITS ---
EXAM: SCRN MAMM (CAD)W/AMELIA BILAT DATE: 11/03/2025 CLINICAL HISTORY: F, Age 40 y/o , BREAST CANCER SCREENING No family history. TECHNIQUE: Procedure Code: [id number] Modality: MG Procedure: SCRN MAMM (CAD)W/AMELIA BILAT COMPARISON: Prior exam(s) dated September 30, 2024.. FINDINGS: TISSUE DENSITY: The breasts are heterogeneously dense, which may obscure small masses. Bilateral Breast Mammographic Findings: No significant masses, calcifications or other abnormalities are identified. Stable bilateral axillary lymph nodes. Stable 4.1 mm nodule in the deep lateral upper aspect of the right breast suggestive of a small lymph node. No suspicious masses, areas of developing architectural distortion, or suspicious calcifications. There has been no significant interval change. BI/SCRN MAMM (CAD)W/AMELIA BILAT IMPRESSION: Stable bilateral screening mammogram. OVERALL FINAL ASSESSMENT BI-RADS 2: BENIGN RECOMMENDATION: Routine annual follow-up in 1 Year Additional Recommendation none A letter with findings and recommendations will be mailed to the patient. Reading Location: [id number]
== END | disposition home or self-care (01) ==
PROVIDERS: PCP Internal Medicine; Referring Provider Internal Medicine; Visit Provider Internal Medicine
DX: Z12.31 Encounter for screening mammogram for malignant neoplasm of breast (principal)
CPT/HCPCS: 77063; 77067